=== PATIENT | female | born 1980 | race Caucasian/White ===

== ENCOUNTER 2023-03-05 18:45 | Outpatient (CLI) | payer MEDICAID, SELFPAY ==
[2023-03-05 19:35] LABS: Amphetamine/Metha Screen,Urine Negative ng/ml (<1000)
[2023-03-05 19:36] LABS: Cannabinoid Screen,Urine Positive ng/ml (<50)
[2023-03-05 19:37] LABS: Barbiturates Screen,Urine Negative ng/ml (<200)
[2023-03-05 19:38] LABS: Benzodiazepines Screen,Urine Negative ng/ml (<200); Cocaine Screen,Urine Negative ng/ml (<300)
[2023-03-05 19:39] LABS: Methadone Screen,Urine Negative ng/ml (<300)
[2023-03-05 19:40] LABS: Opiate Screen,Urine Negative ng/ml (<300); Phencyclidine Screen,Urine Negative ng/ml (<25)
== END 2023-03-05 23:59 ==
LOC: LAB.DROPOF 18:46
PROVIDERS: PCP Family Medicine; Visit Provider Family Medicine
DX: Z79.899 Other long term (current) drug therapy (principal)
CPT/HCPCS: 80307

== ENCOUNTER 2023-05-10 19:32 | Outpatient (CLI) | payer MEDICAID, SELFPAY ==
[2023-05-10 19:13] LABS: Basophils # 0.1 K/mm3 (0-0.2); Basophils % 1.3 % (0.1-2.0); Eosinophils # 0.1 K/mm3 (0.0-0.4); Eosinophils % 0.8 % (0.1-12.0); Hematocrit 45.8 % (37.0-47.0); Hemoglobin 14.4 g/dL (12.2-16.2); Lymphocytes # 3.3 K/mm3 (0.7-4.5); Lymphocytes % 38.5 % (10-50); Mean Corpuscular HGB Conc 31.5 g/dL (31.8-35.4); Mean Corpuscular Hemoglobin 31.5 pg (27.0-31.2); Mean Corpuscular Volume 99.7 fl (81-99); Mean Platelet Volume 9.7 fl (7.4-10.4); Monocytes # 0.6 K/mm3 (0.1-1.0); Monocytes % 6.8 % (1.7-9.3); Neutrophils # 4.4 K/mm3 (1.8-7.8); Neutrophils % 52.6 % (37.0-80.0); Platelet Count 676 K/mm3 (142-424); Red Blood Count 4.59 M/mm3 (4.20-5.40); Red Cell Distribution Width 15.8 % (11.5-17.5); White Blood Count 8.4 K/mm3 (4.8-10.8)
[2023-05-10 19:33] LABS: Chloride 105 mmol/L (98-107); Sodium 138 mmol/L (136-145)
[2023-05-10 19:36] LABS: Alanine Aminotransferase 16 U/L (12-78); Albumin Level 3.8 g/dl (3.5-5.0); Albumin/Globulin Ratio 1.3 (1.1-1.8); Alkaline Phosphatase 88 U/L (38-126); Aspartate Amino Transferase 22 U/L (14-36); Blood Urea Nitrogen 7 mg/dl (7-17); Carbon Dioxide 29 mmol/L (22.0-30.0); Cholesterol 174 mg/dl (140-200); Estimated Glomerular Filt Rate 135 ml/min (>60); GFR (African American) 164 ML/MIN (>60); Total Protein,Serum 6.8 g/dl (6.3-8.2); Triglycerides 133 mg/dl (30-150); VLDL Cholesterol 27 mg/dL (0-40)
[2023-05-10 19:37] LABS: Calcium 9.2 mg/dl (8.4-10.2); Chol/HDL Ratio 5.3 (1-3.5); Glucose 96 mg/dl (74-100); HDL Cholesterol 33 mg/dl (40-60)
[2023-05-10 19:39] LABS: Bilirubin,Total 0.1 mg/dl (0.2-1.3)
[2023-05-10 19:48] LABS: Direct LDL Cholesterol 106.84 mg/dL (100-129)
[2023-05-10 19:55] LABS: Free T4 (Free Thyroxine) 1.12 ng/dl (0.78-2.19)
[2023-05-10 19:58] LABS: Hemoglobin A1C 6.1 % (4.0-6.0)
== END 2023-05-10 23:59 ==
LOC: LAB.DROPOF 19:32
PROVIDERS: Nurse Practitioner Acute Care; PCP Nurse Practitioner Family; Visit Provider Nurse Practitioner Family
DX: R73.09 Other abnormal glucose (principal); F32.A Depression, unspecified; F41.9 Anxiety disorder, unspecified; R30.0 Dysuria; Z79.899 Other long term (current) drug therapy
CPT/HCPCS: 80053; 80061; 83036; 84439; 84443; 85025; 87086

== ENCOUNTER 2023-11-16 11:05 | Outpatient (CLI) | payer MEDICAID, SELFPAY ==
[2023-11-16 18:37] LABS: Basophils # 0.1 K/mm3 (0-0.2); Basophils % 0.8 % (0.1-2.0); Eosinophils # 0.2 K/mm3 (0.0-0.4); Eosinophils % 1.6 % (0.1-12.0); Hematocrit 42.6 % (37.0-47.0); Lymphocytes # 4.7 K/mm3 (0.7-4.5); Lymphocytes % 46.9 % (10-50); Mean Corpuscular HGB Conc 30.4 g/dL (31.8-35.4); Mean Corpuscular Hemoglobin 30.4 pg (27.0-31.2); Mean Corpuscular Volume 99.9 fl (81-99); Mean Platelet Volume 9.1 fl (7.4-10.4); Monocytes # 0.7 K/mm3 (0.1-1.0); Monocytes % 6.9 % (1.7-9.3); Neutrophils # 4.4 K/mm3 (1.8-7.8); Neutrophils % 43.8 % (37.0-80.0); Platelet Count 495 K/mm3 (142-424); Red Blood Count 4.26 M/mm3 (4.20-5.40); Red Cell Distribution Width 16.6 % (11.5-17.5)
[2023-11-16 19:00] LABS: Alanine Aminotransferase 19 U/L (12-78); Albumin Level 3.7 g/dl (3.5-5.0); Albumin/Globulin Ratio 1.3 (1.1-1.8); Alkaline Phosphatase 71 U/L (38-126); Amylase 51 U/L (30-110); Anion Gap 5.1 mEq/L (5-15); Aspartate Amino Transferase 26 U/L (14-36); Bilirubin,Total 0.3 mg/dl (0.2-1.3); Blood Urea Nitrogen 12 mg/dl (7-17); Calcium 8.5 mg/dl (8.4-10.2); Carbon Dioxide 28 mmol/L (22.0-30.0); Chloride 105 mmol/L (98-107); Estimated Glomerular Filt Rate 135 ml/min (>60); GFR (African American) 164 ML/MIN (>60); Globulin 2.9 g/dL (1.3-3.2); Glucose 104 mg/dl (74-100); Lipase 34 U/L (23-300); Potassium 4.1 mmoL/L (3.5-5.1); Sodium 134 mmol/L (136-145); Total Protein,Serum 6.6 g/dl (6.3-8.2)
[2023-11-16 19:32] LABS: Thyroid Stimulating Hormone 3.07 uIU/mL (0.465-4.68)
== END 2023-11-16 23:59 | disposition home or self-care (01) ==
LOC: LAB.DROPOF 11-17 11:05
PROVIDERS: PCP Nurse Practitioner; Visit Provider Nurse Practitioner
DX: R10.11 Right upper quadrant pain (principal)
CPT/HCPCS: 80050; 80053; 82150; 83690; 84443; 85025

== ENCOUNTER 2024-09-12 13:11 | Outpatient (CLI) | payer MEDICAID, SELFPAY ==
--- OUTSIDE RECORDS SUMMARY | 2024-09-12 13:14 | XMS_ITS | Encounter Summary ---
Author Organization [facility] Address [address] [place], [place] [address] Care Team Providers Care Design Supervisor Name Role Phone Provider, Generic External Data Unavailable Unavailable Shivani Stewart MD Unavailable Yvon Marx MD Unavailable [phone] Shivani Stewart MD Primary Care Provider [phone] Shalom Harrison MD Unavailable Denae Garcia RN Unavailable [phone] Ade Sparrow NP Unavailable [phone] Reason for Visit * Reason Comments Medications Refill Encounter Details Date Type Department Care Team (Late st Contact Info) Description 12/29/2021 Refill [facility] Physicians - Primary Care, [place] [address] [facility] [place] [address] Shivani Stewart MD [address] [facility] [place] [address] Medications Refill Social History Tobacco Use Types Packs/Day Years Used Date Smoking Tobacco: Every Day Cigarettes 0.5 35.6 Started: 02/22/1989 Smokeless Tobacco: Never Alcohol Use Standard Drinks/Week Comments Yes 0 (1 standard drink = 0.6 oz pur e alcohol) socially PHQ-2 Answer Date Recorded PHQ-9 Auto Total 0 01/12/2020 Comments No Sex and Gender Information Value Date Recorded Sex Assigned at Female 04/03/2022 12:44 PM EST Legal Sex Female 1:57 PM EDT Gender Identity Female 04/03/2022 12:44 PM EST Sexual Orientation Straight 04/03/2022 12 :44 PM EST documented as of this encounter Plan of Treatment Not on file documented as of this encounter Visit Diagnoses Diagnosis Hypertension associated with type 2 diabetes mellitus ([facility]) Type 2 diabetes mellitus with other specified complication, without long-term current use of insulin DM type 2 with diabetic mixed hyperlipidemia ([facility]) Type II or unspecified type diabetes mellitus with other specified manifestations, not stated as uncontrolled documented in this encounter Additional Health Concerns Assessment Noted Time PHQ-9 Depression Total Score: 1 01/12/20 10:57 AM EST documented as of this encounter Care Teams Design Supervisor Relationship Specialty Start Date End Date Shivani Stewart MD [address] [place] [address] PCP - General Family Medicine 10/01/21 02/08/23 Provider, Generic External Data 07/11/20 Shivani Stewart MD [address] [place] [address] Family Medicine 02/10/21 Yvon Marx MD [address] [place] [address] Family Medicine 03/06/21 Shalom Harrison MD [address] [place] [address] Hematology and Oncology 03/30/22 Denae Garcia, RN [address] [place] [address] Oncology Nurse Navigator 03/31/22 Ade Sparrow [facility] [employer] [facility] [address] [place] [address] Nurse Practitioner Family Medicine 04/19/22 documented as of this encounter
--- OUTSIDE RECORDS SUMMARY | 2024-09-12 13:14 | XMS_ITS | Clinical Summary ---
Author Organization [facility] Address [address] [place] [address] Phone Care Team Providers Care All Source Intelligence Technician Name Role Phone Kateryna Katz MD Unavailable Unavailable Theresa Main APRN Primary Care Provider [phone] Allergies Active Allergy Reactions Criticality Noted Date Comments Clindamycin Nausea And Vomiting 03/30/2018 Morphine Hives,Shortness Of Breath Medium 05/30/2014 Sertraline Hives,Swelling Medium 05/30/2014 Medications * This document contains information received from the source organization and may not represent a complete record from that organization. omeprazole (PRILOSEC) 20 mg Oral Capsule, Delayed Release(E.C.)In dications:Gastr oesophageal reflux disease, esophagitis presence not specified Take 1 Cap by mouth daily. 30 Cap 5 05/19/19 19 Active topiramate (TOPAMAX) 25 mg Oral Tablet Take 25 mg by mouth daily. 03/08/19 19 Active metoprolol succinate (TOPROL-XL) 25 mg Oral Tablet Sustained Release 24 hr Take 1 Tab by mouth daily. 30 Tab 6 06/09/19 19 Active aspirin 325 mg Oral Tablet Take 325 mg by mouth daily. Active QUEtiapine (SEROQUEL) 100 mg Oral Tablet TAKE ONE OR 2 BY MOUTH AT BEDTIME 10/02/19 20 Active risperiDONE (RISPERDAL) 0.5 mg Oral Tablet TAKE ONE BY MOUTH TWICE DAILY OR TAKE 2 AT BEDTIME 10/02/19 20 Active gabapentin (NEURONTIN) 800 mg Oral Tablet Take 800 mg by mouth 4 times daily. Active famotidine (PEPCID) 40 mg Oral Tablet Take 40 mg by mouth daily. Active venlafaxine (EFFEXOR-XR) 75 mg Oral Capsule, Sust. Release 24 hr Take 1 mg by mouth daily. Active mometasone-form oterol (DULERA HFA) 200-5 mcg/actuation Inhl HFA Aerosol Inhaler Inhale 1 Puff into the lungs 2 times daily. Active nalOXone (NARCAN) 4 mg/actuation Nasl [place], Non-AerosolIndi cations:At risk for substance overdose 0.1 mL by INTRANASAL route as needed for Opioid Reversal. 1 Package 11/21/19 Active ferrous sulfate 325 mg (65 mg iron) Oral TabletIndicatio ns:Normocytic anemia,Thromboc ytosis TAKE ONE TABLET BY MOUTH TWO TIMES DAILY 60 Tab 3 05/04/19 21 Active Additional Information Patient not taking.Reason: Therapy Completed, Reported on 09/10/2021 buprenorphine-n aloxone (SUBOXONE) 8-2 mg SL Tablet, Sublingual Place 2 Tabs under the tongue daily. 14 Tab 05/11/19 Active Additional Information Patient taking differently: 3 TabletSublingual DAILY, Reason: Advised by Physician, Reported on 02/20/2022 dicyclomine (BENTYL) 20 mg Oral Tablet Take 1 Tablet by mouth 4 times daily as needed for Other (abdominal cramping) for up to 20 doses. 20 Tablet 08/19/19 22 Active Additional Information Patient not taking.Reason: Therapy Completed, Reported on 02/20/2022 promethazine (PHENERGAN) 25 mg Oral Tablet Take 25 mg by mouth every 8 hours as needed. for nausea 08/27/19 Active pravastatin (PRAVACHOL) 10 mg Oral Tablet Take 10 mg by mouth every evening. 08/23/19 22 Active ondansetron (ZOFRAN) 8 mg Oral Tablet Take by mouth every 8 hours as needed. 08/27/19 22 Active metFORMIN (GLUCOPHAGE XR) 500 mg Oral Tablet Sustained Release 24 hr 08/13/19 22 Active meloxicam (MOBIC) 15 mg Oral Tablet Take 15 mg by mouth daily. 08/30/19 22 Active INVOKANA 300 mg Oral Tablet TAKE 1 TABLET BY MOUTH DAILY. TAKE BEFORE THE FIRST MEAL OF THE DAY. 08/21/19 Active albuterol (PROVENTIL HFA;VENTOLIN HFA) 90 mcg/actuation Inhl HFA Aerosol Inhaler Inhale 2 Puffs into the lungs every 6 hours. 12/10/19 21 Active acetaminophen (TYLENOL) 500 mg Oral Tablet Take by mouth every 4 hours as needed for Pain. Active FLUoxetine (PROZAC) 20 mg Oral Tablet Take 20 mg by mouth daily. Active Active Problems Patient Care Coordination No te Formatting of this note migh t be different from the original. Tuan: as expected 06/21/17 CSTA signed 06/21/17 UDS inconsistent 06/21/17 Inconsistent UDS, no controlled substances from [place] office. Problem Noted Date Diagnosed Date Opioid dependence on agonist therapy 04/30/2020 Methamphetamine use disorder, severe 04/23/2020 Cannabis use disorder, severe, dependence 2020 Pelvic pain in female 03/19/2020 Uncontrolled hypertension 03/19/2020 Menorrhagia with irregular cycle 03/05/2020 Irregular menstrual bleeding 11/08/2019 Assessment & Plan (11/08/2019 2:17 PM EDT): Limited exam due to body habitus Will obtain TVUS and consider EMB at follow up visit Limited medical therapy, patient declines progesterone therapy Review of TXA recommends limiting use in patient's with history of prior Thrombosis. Discussed Endometrial ablation, however counseled that this may not resolve her abdominal/pelvic pain Desires definitive therapy with hysterectomy Dysmenorrhea 11/08/2019 Cervical cancer screening 11/08/2019 Dysarthria 08/22/2018 Facial droop 08/22/2018 Essential hypertension 06/08/2018 Overview (07/21/2018): BP Readings from Last 3 Encounters: 07/21/18 148/90 06/22/18 158/76 06/08/18 (!) 168/104 Improved back on metoprolol. Not at goal. Denies chest pain and SOB, swelling, dizziness or orthostatics. Head aches are better as well. continue metoprolol Start HCTZ 25 mg daily Abnormal thyroid blood test 05/18/2018 Overview (05/18/2018): Will recheck GERD (gastroesophageal reflux disease) 9 Overview (05/18/2018): well controled on omeprazole Opioid use disorder, severe, dependence 05/19/19 19 Overview (06/22/2018): 06/22/18 Smoked marijuana prior to 06/08/18. Will need to have clean drug screens by 08/08/18. Has been doing counseling and 12 step. Manny and tuan frazier. 06/13/2018 Spoke with Jostin Marcus pts next appointment is 06/14/2018 @ 10:30, pt has been compliant with all sessions. 05/18/18 Substance use Hx: (type, quant, route): Marijuana, smoke, Frequency: 1/2 quarter every 2 days How lon years Longest sobriety: months at a time Progression: Stays same- I smoke daily Last exposure: 05/16/18 (type, quant, route): Tobacco, smoke, 1 PPD Frequency: daily How lon years Longest sobriety: never Progression: same Last exposure: today Denies alcohol use. (type, quant, route): max dose was 150 mg oxycodone daily snorting. Frequency: daily How long: started at age 22 recreationally. Addicted after 3 months. Longest sobriety: 2 years Last exposure: 04/02/2018 (type, quant, route): Heroin, max daily use 1 gram daily IV. Currently using 0.5 grams daily Frequency: daily How long: started at age 30 Longest sobriety: 4 years part of time was in senior living and then rehab Last exposure: 05/16/18 (type, quant, route): Suboxone Prescribed in 2018 for 2 weeks but stopped due to cost. (type, quant, route): Methamphetamine, 1 gram Frequency: daily How long: started age 24 Longest sobriety: 4 years Last exposure: last exposure 05/16/18 (type, quant, route): Methadone, 80 mg, drink Prescribed in 2018 for 3 months. Has used off the street as well intermittently Frequency: daily How long: not using Longest sobriety: Only used a short period of time Progression: slowed Last exposure: 2018 Denies K2, spice, Kratum use. Denies sedative use. Has used intermittently in remote past. History of substance use related seizures: no Substances: (Tolerance: A state of adaptation in which exposure to a drug induces changes that result in diminution of one or more of the drug's effects over time.) Evidence of tolerance to any substance: yes Substances: Percocet and Heroin (Dependence: A state of adaptation that is manifested by a drug class specific withdrawal syndrome that can be produced by abrupt cessation, rapid dose reduction, decreasing blood level of the drug, and / or administration of an antagonist.) Evidence of dependence to any substance: yes Substances: Percocet and Heroin (Substance abuse: A maladaptive pattern of substance use leading to clinically significant impairment or distress, as manifested by one or more of the following, occuring with in a 12-month period: 1. Recurrent substance use resulting in a failure to fulfill major role obligations at work, school, or home. 2. Recurrent substance use in situations in which it is physically hazardous. 3. Recurrent substance-related legal problems. 4. Continued substance use despite having persistent or recurrent social or interpersonal problems caused or exacerbated by the effects of the substance. Evidence of substance abuse: yes Substances: Percocet and Heroin Evidence of opioid use disorder: yes (if yes insert DSM5 check list) DSMV Opioid Use Disorder diagnostic criteria Opioid Use Disorder requires at least 2 criteria be met within a 12 month period 1. Opioids are often taken in larger amounts or over a longer period of time than intended. yes 2. There is a persistent desire or unsuccessful efforts to cut down or control opioid use. yes 3. A great deal of time is spent in activities necessary to obtain the opioid, use the opiod, or recover from its effects. yes 4. Craving, or a strong desire to use opioids. yes 5. Recurrent opioid use resulting in failure to fulfill major role obligations at work, school, or home. yes 6. Continued opioid use despite having persistent or recurrent social or interpersonal problems caused or exacerbated by the effects of opioids. yes 7. Important social, occupational or recreational activities are given up or reduced because of opioid use. yes 8. Recurrent opioid use in situations in which it is physically hazardous. yes 9. Continued use despite knowledge of having a persistent or recurrent physical or psychological problem that is likely to have been caused or exacerbated by opioids. yes 10. * Tolerance as defined by either of the following: A. A need for markedly increased amounts of opiods to achieve intoxication or desired effect. yes B. Markedly diminished effect with continued use of the same amount of an opioid. yes 11. * Withdrawal, as manifested by either of the following: A. The characteristic opioid withdrawal syndrome. yes B. The same (or a closely related) substance are taken to relieve or avoid withdrawal symptoms. yes * This criterion is not considered to be met for those individuals taking opioids solely under appropriate medical supervision. Severity: Mild: 2-3 symptoms, Moderate: 4-5 symptoms, Severe: 6 or more symptoms History of opioid withdrawal: yes (If yes insert DSM5 criteria) History of overdose: no Treatment history: (inpatient / outpatient, MAT, 12 steps, location, dates) [facility] [place] 2010- 12 month program in [facility] 2001- 12 month program in [facility] Counseling with Jostin Marcus currently Is doing 12 steps. Consequences of drug use: I have 2 felonies due to my drug abuse. Lynda lost all my family and I'm just not who I used to be before I became this monster. Health issues. How is pt feeling? In withdraw Currently intoxicated? no Insight, motivation, readiness to change? yes Stage of change (precontemplative, contemplative, preparative, action, maintenance, relapse): change Past psychiatric history: (Dx, duration, course, treatment): Not sure of the dates, but I was in the mental hospital 3 times last year. Primarily to help with withdraw. Hx of depression and anxiety. Has been on SSRI's. Previous psych hospital admissions: yes Physical abuse hx: no Mood sympotms Depression: yes Anxiety: yes Insomnia: yes Rapid thoughts: yes Difficulty with focus: yes Forgetfulness: yes Crying spells: yes Anger control issues: yes Mood swings: yes Palpitatons: yes SOB: no Nausea: yes Appetite change: yes Panic attacks: yes HSI: no AVH: no Thoughts of : no Despair: no Anhedonia: no TP: linear, TC: logical, mood: , affect: Congruent Sexual history: Sexually active: yes Length of time with current partner: 5 years Number of partners in lifetime: many Practices safe sex: did not always use condoms High risk sexual behavior? no STD hx: Trichomonas s/p tx. Any current STD symptoms: no Sexual abuse hx: no Social recovery environment: Living situation: I live with my fiance, who is super supportive Family / social support: My fiance is all I have Relationships: (Single / / / ): single Children: 19- girl 14-girl 13- boy Youngest children are in foster care, has relationship with older child. Problems at school or work? unemployed Relational problems with spouse or children? yes Involvement in violence? no Legal charges for public intox, altercations, possession or DUI? Yes 2008 Manufacturing Meth 1999 Poss of a stolen check Longest time in senior living has been 2 years No current legal issues. Financial problems? yes Partner with substance use disorder? no School hx: Not in school Did not graduate high school. Did not get GED. Work hx: I dont work Given handouts on Frequently asked questions, Welcome to [facility], Basic suboxone information, Warning about returning to opioid use Consents discussed and signed. Discussed suboxone is for safety, but recovery occurs in the process that involves counselling and sober communities. Has a month do begin establishing these or we may need to discuss a wean protocol. Referral sources provided. Continue activity of recover, counseling and 12 steps. Viral hepatitis A without hepatic coma 9 Overview (05/18/2018): Liver enzymes now returning to normal. No longer jaundiced Depression with anxiety 11/01/2017 Overview (07/21/2018): Denies HSI, AVH, anhedonia, despair Improved on celexa Morbid obesity with BMI of 45.0-49.9, adult 06/23 Overview (07/21/2018): Wt Readings from Last 3 Encounters: 07/21/18 281 lb 9.6 oz (127.7 kg) 06/22/18 295 lb 6.4 oz (134 kg) 06/08/18 292 lb (132.5 kg) diet and exercise. Tobacco abuse 07/15/2017 Overview (05/18/2018): stop Chronic low back pain 01/30/2015 Overview (06/08/2018): Will not rx gabapentin due to continued use of marijuana Recommend tylenol and aleve ROM exercises. Resolved Problems Problem Noted Date Diagnosed Date Resolved Date Recurrent biliary colic 04/15/201804/23 Overview (04/15/2018): Added automatically from request for surgery [id number] Calculus of gallbladder with out cholecystitis without obstruction 03/30/2018 05/18/2018 Surgical History Surgery Date Site/Laterality Comments SPLENECTOMY lymphoma OVARY REMOVAL Right SALPINGO-OOPHORECTOMY Right ABDOMINAL ADHESION SURGERY TONSILLECTOMY COLONOSCOPY 08/14/15 UPPER GASTROINTESTINAL ENDOSCOPY 08/14/15 COLONOSCOPY 08/14/2015 N/A COLONOSCOPY with hot snare polypectomy, polypectomy with biopsy forceps ESOPHAGOGASTRODUODENOSCOPY with biopsies; Surgeon: Kateryna Katz MD; Location: [facility]; Service: Endoscopy UPPER GASTROINTESTINAL ENDOSCOPY 08/14/2015 N/A Surgeon: Kateryna Katz MD; Location: [facility]; Service: Endoscopy SECTION x3 SPLENECTOMY 02/23/2008 - 02/21/2009 CHOLECYSTECTOMY, LAPAROSCOPIC 04/18/2018 Abdomen/N/A Laparoscopic Cholecystectomy ; Surgeon: Ezio Dorsey MD; Location: [facility] OR; Service: General Medical History Medical History Date Comments Chronic back pain Lymphoma (HCC) 2008 Treated in [facility] HTN (hypertension) Heartburn Hepatitis Hepatitis A (02/23 019) Depression Cancer (HCC) Abnormal glandular Papanicolaou smear of cervix Allergy Anemia Anxiety Arthritis Asthma Encounter for blood transfusion GERD (gastroesophageal reflux disease) Heart murmur Stroke (HCC) Substance abuse (HCC) Diabetes mellitus (HCC) Family History Medical History Relation Name Comments Cancer Father lymphoma, prost ate, melanoma Cirrhosis Father Diabetes Father Heart Disease Father High Blood Pressure Father High Cholesterol Father Liver Disease Father Rectal Cancer Father Cirrhosis Mother Depression Mother Heart Disease Mother High Blood Pressure Mother High Cholesterol Mother Liver Disease Mother Diabetes Paternal Grandmother Colon Cancer Neg Hx Esophageal Cancer Neg Hx Liver Cancer Neg Hx Stomach Cancer Neg Hx Relation Name Status Comments Father Mother Paternal Grandmother Social History Tobacco Use Types Packs/Day Years Used Date Smoking Tobacco: Every Day Cigarettes 0.5 31.2 Started: 06/21/1993 Smokeless Tobacco: Never Tobacco Cessation:Ready to Q uit: Not Asked; Counseling Given: Not Answered Alcohol Use Standard Drinks/Week Comments No 0 (1 standard drink = 0.6 oz pur e alcohol) PHQ-2 Answer Date Recorded PHQ-2 Score 0 07/13/2018 Sexually Active Control Partners Comments Yes Male not preventing Comments No Sex and Gender Information Value Date Recorded Sex Assigned at Not on file Legal Sex Female 9:32 AM EDT Gender Identity Not on file Sexual Orientation Not on file Obstetrics History Para Term AB IAB SAB Ectopic Multiple Livin g Live Births 3 3 3 0 0 0 0 0 0 3 3 Date Outcome GA Total Labor Labor/2nd/3rd Weight Sex Type Anes PTL [place] A1 A5 Name Clin 09/26 Term 6 lb 7 oz (2.92 kg) F CSP Spinal Living 07/29 Term 7 lb 8 oz (3.402 kg) F CHIEF RADIOLOGIC TECHNOLOGIST Spinal Living 10/08 Term 6 lb 2 oz (2.778 kg) M CHIEF RADIOLOGIC TECHNOLOGIST Spinal Living Last Filed Vital Signs Vital Sign Reading Time Taken Comments Blood Pressure 120/65 01/02/2024 1:30 PM EST Pulse 49 01/02/2024 2:26 PM EST Temperature 36.7 C (98.1 F) 01/02/2024 1:57 PM EST Respiratory Rate 12 01/02/2024 2:26 PM EST Oxygen Saturation 95% 01/02/2024 2:26 PM EST Inhaled Oxygen Concentration - - Weight 122.5 kg (270 lb) 01/02/2024 11:49 AM EST Height 165.1 cm (5' 5 ) 01/02/2024 11:49 AM EST Body Mass Index 44.93 01/02/2024 11:49 AM EST Plan of Treatment Health Maintenance Due Date Last Done Comments Meningococcal Vaccine ACWY ( 1 - Risk 2-dose series) 1982 Meningococcal B Vaccine (1 o f 4 - Increased Risk) 1990 Hepatitis B Vaccine (1 of 3 - 19+ 3-dose series) 12/15/1999 Pneumococcal Vaccine 0-49 (1 of 2 - PCV) 12/15/1999 Annual Wellness Exam 05/22/2016 05/23/2015 (Postpone d) Breast Cancer Screening 2020 Pap Smear 11/07/2022 11/08/2019, 09/03/2014 COVID-19 Vaccine ( - season) 2023 Influenza Vaccine (#1) 2024 6 (Declined), 11/28/2014 (Declined), 11/22/2014 (Declined) Cervical Cancer Screening 11/07/2024 HPV/Pap Cotest 11/07/2024 11/08/2019 DTaP/TDaP/Td (2 - Td or Tdap) 03/03/2027 03/03/2017 Goals Goal Patient Goal Type Associated Problems Recent Progress Patient-Stated? Author Blood Pressure < 140/90 Blood Pressure 120/65(2023 1:30 PM EST) Coty Crump APRN Maintain a healthy diet, exercise regularly and maintain an ideal body weight General No Wendi Andrea MA Stay Tobacco Free Lifestyle Wendi Crump MA Procedures Procedure Name Priority Date/Time Associated Diagnosis Comments ASSESSMENT SERVICES MANAGER CYTOLOGY REQUEST (PAP ONLY) Routine 11/08/2019 11:37 AM EDT Cervical cancer screening Irregular menstrual bleeding from Last 3 Months or Most Recently Relevant to Health Maintenance Results * (ABNORMAL) ASSESSMENT SERVICES MANAGER CYTOLOGY REQUEST (PAP ONLY) (11/08/2019 11:37 AM EDT) CASE REPORT Gynecologic Cytology Report Case: [id number] Authorizing Provider: Lala Kline MD Collected: 11/08/2019 1137 Ordering Location: [facility] Edg Received: 11/08/2019 1137 First Screen: Pascale Gars[place], CT Pathologist: Frandy Roldan MD Specimen: LIQUID-BASED PAP - CERVICAL/ENDOCERV ICAL, Cervix, Endocervical 11/10/2019 10:31 AM EDT [facility] PAP FINAL DIAGNOSIS Atypical squamous cells of undetermined significance(A) [facility] MICROSCOPIC DESCRIPTION Microscopic examination is performed and the findings corroborate the diagnosis 11/10/2019 10:31 AM EDT [facility] P[facility] ADEQUACY Satisfactory for evaluation 11/10/2019 10:31 AM EDT [facility] ENDOCERVICAL T-ZONE Transformation zone present 11/10/2019 10:31 AM EDT [facility]EDDED IMAGES [facility] P[facility] DISCLAIMER The Pap Smear is a screening test that aids in the detection of cervical cancer and cancer precursors. Both false positive and false negative results can occur. The test should be used at regular intervals, and positive results should be confirmed before definitive therapy. Processed using the ThinPrep Aircraft Stress Analyst Automated cytology screening device (Sonavation). 11/10/2019 10:31 AM EDT [facility] Thin Prep ENDOCERVICAL STRUCTURE / Unknown 11/08/2019 11:37 AM EDT 11/08/2019 11:37 AM EDT us Lala Kline MD CYTOLOGY ORDERABLES Final Resul t [facility] [address] [place] [address] from Last 3 Months or Most Recently Relevant to Health Maintenance Insurance [employer] [address] [place] [address] [address] [employer] [address] [employer] [place] [id number] [place] [employer] [place] [id number] [place] Advance Directives For more information, please contact: [phone] * Full Code (Latest Code Status on File) Date Activated Date Inactivated Comments 08/23/2018 10:51 AM 08/23/2018 3:23 PM * Full Code Date Activated Date Inactivated Comments 03/30/2018 11:58 PM 03/31/2018 8:16 PM Care Teams All Source Intelligence Technician Relationship Specialty Start Date End Date Theresa Main APRN [facility] [address] [place] [address] PCP - General Nurse Practitioner 03/04/18 Kateryna Katz MD Physician Internal Medicine-Gastroenterology 08/12/15
--- OUTSIDE RECORDS SUMMARY | 2024-09-12 13:14 | XMS_ITS | Encounter Summary ---
Author Organization [facility] Address [address] [place], [place] [address] Care Team Providers Care Rn Corrections Name Role Phone Provider, Generic External Data Unavailable Unavailable Shivani Stewart MD Unavailable Yvon Marx MD Unavailable [phone] Shivani Stewart MD Primary Care Provider [phone] Shalom Harrison MD Unavailable Denae Garcia RN Unavailable [phone] Ade Sparrow NP Unavailable [phone] Reason for Visit * Reason Comments Medications Refill Encounter Details Date Type Department Care Team (Late st Contact Info) Description 06/30/2022 Refill [facility] Physicians - Primary Care, [place] [address] [facility] [place] [address] Shivani Stewart MD [address] [place] [place] [address] Medications Refill Social History Tobacco [...] Orientation Straight 04/03/2022 12 :44 PM EST COVID-19 Exposure Response Date Recorded In the last 10 days, have yo u been in contact with someone who was confirmed or suspected to have Coronavirus/COVID-19? No / Unsure 06/24/2022 10:08 AM EDT documented as of this encounter Miscellaneous Notes * Telephone Encounter - Lucero Odell MA - 06/30/2022 11:41 AM EDT Last UDS:05/06/2021 Last CSA:[id number] Last OV: 04/06/2022 video with LT, 11/25/2021 ov with Pending OV:08/26/2022 Unless otherwise stated 3 month office visit is required per [employer] Law documented in this encounter Plan of Treatment Not on file documented as of this encounter Visit Diagnoses Diagnosis Chronic midline low back pain without sciatica Controlled substance agreement signed Encounter for long-term (current) use of other medications documented in this encounter Additional Health Concerns Assessment Noted Time PHQ-9 Depression Total Score: 1 01/12/20 10:57 AM EST documented as of this encounter Care Teams Rn Corrections Relationship Specialty Start Date End Date Shivani Stewart MD [address] [employer] [address] [place], [place] [id number] PCP - General Family Medicine 10/01/21 02/08/23 Provider, Generic External Data 07/11/20 Shivani Stewart MD [address] [employer] [address] [place], [place] [id number] Family Medicine 02/10/21 Yvon Marx MD [address] [place] [address] Family Medicine 03/06/21 Shalom Harrison MD [address] [place] [address] Hematology and Oncology 03/30/22 Denae Garcia, CHAS [address] [place] [address] Oncology Nurse Navigator 03/31/22 Ade Sparrow NP [address] [place] [address] Nurse Practitioner Family Medicine 04/19/22 documented as of this encounter
--- OUTSIDE RECORDS SUMMARY | 2024-09-12 13:14 | XMS_ITS | Encounter Summary ---
Author Organization [facility] Address [address] [place], [place] [address] Care Team Providers Care Starch Factory Laborer Name Role Phone Theresa Main NP Primary Care Provider [phone] Provider, Generic External Data Unavailable Unavailable Shivani Stewart MD Unavailable Yvon Marx MD Unavailable [phone] Shivani Stewart MD Primary Care Provider [phone] Shalom Harrison MD Unavailable Denae Garcia RN Unavailable [phone] Ade Sparrow NP Unavailable [phone] Reason for Visit * Reason Comments Medications Refill Encounter Details Date Type Department Care Team (Late st Contact Info) Description 04/03/2018 Refill [facility] Physicians - Primary Care, [place] [address] [place] [address] [place] [address] Theresa Main NP [address] [place] [id number] Medications Refill Social History Tobacco Use Types Packs/Day Years Used Date Smoking Tobacco: Every Day Cigarettes 0.5 35.6 Started: 02/22/1989 Smokeless Tobacco: Never Alcohol Use Standard Drinks/Week Comments Yes 0 (1 standard drink = 0.6 oz pur e alcohol) socially Comments No Sex and Gender Information Value Date Recorded Sex Assigned at Female 04/03/2022 12:44 PM EST Legal Sex Female 1:57 PM EDT Gender Identity Female 04/03/2022 12:44 PM EST Sexual Orientation Straight 04/03/2022 12 :44 PM EST documented as of this encounter Plan of Treatment Not on file documented as of this encounter Visit Diagnoses Diagnosis Routine general medical examination at a health care facility Encounter to establish care Other reasons for seeking consultation Cancer screening Screening for unspecified malignant neoplasm Morbidly obese ([facility]) Morbid obesity Tobacco abuse Tobacco use disorder Essential hypertension Anxiety Anxiety state, unspecified Acute vaginitis Vaginitis and vulvovaginitis, unspecified Chronic midline low back pain without sciatica documented in this encounter Additional Health Concerns Infection Onset Date Last Indicated Resolved Time Hepatitis A Comment:03/21/2018 + Hep A 03/22/2018 03/22/2018 06/16/2018 2:2 7 PM EDT Assessment Noted Time PHQ-9 Depression Total Score: 1 08/27/19 18 12:14 PM EDT documented as of this encounter Care Teams Starch Factory Laborer Relationship Specialty Start Date End Date Theresa Main NP PCP - General Nurse Practitioner 06/30/17 09/30/21 Shivani Stewart MD [address] [employer] [facility] [place] [address] PCP - General Family Medicine 10/01/21 02/08/23 Provider, Generic External Data 07/11/20 Shivani Stewart MD [address] [employer] [facility] [place] [address] Family Medicine 02/10/21 Yvon Marx MD [address] [place] [address] Family Medicine 03/06/21 Shalom Harrison MD [address] [place] [address] Hematology and Oncology 03/30/22 Denae Garcia, RN [address] [place] [address] Oncology Nurse Navigator 03/31/22 Ade Sparrow NP [address] [place] [address] Nurse Practitioner Family Medicine 04/19/22 documented as of this encounter
--- OUTSIDE RECORDS SUMMARY | 2024-09-12 13:14 | XMS_ITS | Clinical Summary ---
Author Organization [employer] [facility] Address [address] [place] [address] Phone Care Team Providers Care Generation Engineer Name Role Phone Unavailable Unavailable Conditions or Problems Problem Name Problem Code Onset Date Status Entry Date Provider Comment Standard Description Annotate DENTAL CARIES EXTENDING INTO PULP 0342327 (SNOMED CT) Inactive Ramesh Wynneelin DMD Complex dental caries Medications Medication Instructions Start Date Stop Date Generic Name NDC Provider IBUPROFEN 800 MG TABS TAKE 1 TABLET EVERY 6 HOURS NEEDED FOR PAIN IBUPROFEN [id number] Ramesh Tomelin DMD CLINDAMYCIN HCL 150 MG CAPS TAKE 2 CAPSULES EVERY 6 HOURS CLINDAMYCIN HCL [id number] Ramesh Tomelin DMD Medications Administered No information available. Allergies, Adverse Reactions, Alerts Observed no known allergies at Results No information available. Plan of Care No information available. Procedures No information available. Vital Signs No information available. Immunizations No information available. Advance Directives No information available.
--- OUTSIDE RECORDS SUMMARY | 2024-09-12 13:14 | XMS_ITS | Clinical Summary ---
Author Organization [facility] Address [address] [place], [place] [address] Care Team Providers Care Car Blocker Name Role Phone Provider, Generic External Data Unavailable Unavailable Shivani Stewart MD Unavailable Yvon Marx MD Unavailable Shalom Harrison MD Unavailable Denae Garcia RN Unavailable Ade Sparrow NP Unavailable [phone] Allergies Active Allergy Reactions Criticality Noted Date Comments Clindamycin Nausea And Vomiting 03/21/2018 Morphine Hives,Shortness Of Breath Medium 07/15/2017 Sertraline Swelling Medium 07/15/2017 Medications budesonide-formote rol (SYMBICORT) 160-4.5 mcg/actuation HFA Aerosol Inhaler Take 2 Puffs by inhalation every 12 hours. 1 Inhaler 0 Active naloxone (NARCAN) 4 mg/actuation [place], Non-Aerosol [place] 4 mg into nose. 0 Active Buprenorphine-Nalo xone (Suboxone) 8-[address] 2 Tablets under tongue. 1 Active promethazine (PHENERGAN) 25 mg tablet Take 25 mg by mouth every 8 hours as needed. 2 Active blood sugar diagnostic (TRUE METRIX GLUCOSE TEST STRIP) by Does not apply route. Active True Metrix Glucose Meter Misc Use 1 Each as instructed 4 times daily (before meals and at bedtime). Use to test blood sugar. Diagnosis for use: Type 2 Diabetes controlled E.11.9 1 Each 2 Active True Metrix Glucose Test Strip Strip Use 1 Strip as instructed 4 times daily (before meals and at bedtime). Use to test blood sugar. Diagnosis for use: Type 2 Diabetes controlled E.11.9 100 Strip 6 2 Active Lancing Device with Lancets Kit Use 1 Each as instructed 4 times daily (before meals and at bedtime). Use to test blood sugar. Diagnosis for use: Type 2 Diabetes controlled E.11.9 100 Each 1 2 Active Lancets Misc Use 1 Each as instructed 4 times daily (before meals and at bedtime). Use to test blood sugar. Diagnosis for use: Type 2 Diabetes controlled E.11.9 100 Each 1 2 Active Alcohol Swabs Pads, Medicated Use 1 Each as instructed 4 times daily (before meals and at bedtime). Use to test blood sugar. Diagnosis for use: Type 2 Diabetes controlled E.11.9 100 Each 6 2 Active dicyclomine (BENTYL) 20 mg tablet 2 Active ondansetron (ZOFRAN) 8 mg tablet Take by mouth every 8 hours as needed. 2 Active famotidine (PEPCID) 40 mg tablet Take 1 tablet by mouth every evening. 90 Tablet 3 2 Active nicotine (NICODERM CQ) 21 mg/24 hr patch Apply 1 Patch to skin daily. 30 Patch 1 3 Active QUEtiapine (SEROQUEL) 200 mg TabletIndications: GARTH (generalized anxiety disorder),Moderate episode of recurrent major depressive disorder ([facility]) Take 1 Tablet (200 mg) by mouth nightly at bedtime. 90 Tablet 3 Active metoprolol succinate (TOPROL) 50 mg Tablet Sustained Release 24 hrIndications:Hype rtension associated with type 2 diabetes mellitus ([facility]) Take 1 Tablet by mouth once daily. 30 Tablet 3 3 Active Invokana 100 mg TabletIndications: Hypertension associated with type 2 diabetes mellitus ([facility]),Type 2 diabetes mellitus with other specified complication, without long-term current use of insulin,Type 2 diabetes mellitus with microalbuminuria, without long-term current use of insulin ([facility]),DM type 2 with diabetic mixed hyperlipidemia ([facility]) Take 1 Tablet by mouth once daily. Take before the first meal of the day 30 Tablet 3 3 Active omeprazole (PRILOSEC) 40 mg Capsule, Delayed Release(E.C.)Indic ations:Chronic midline low back pain without sciatica,Cancer screening,Morbidly obese ([facility]),Tobacco abuse,Essential hypertension,Anxie ty Take 1 capsule by mouth once daily 90 Capsule 3 3 Active Dulera 200-5 mcg/actuation HFA Aerosol Inhaler Inhale 2 Puffs into the lungs twice daily. 13 g 5 3 Active losartan (COZAAR) 50 mg TabletIndications: Hypertension associated with type 2 diabetes mellitus ([facility]),Type 2 diabetes mellitus with other specified complication, without long-term current use of insulin,DM type 2 with diabetic mixed hyperlipidemia ([facility]),Type 2 diabetes mellitus with microalbuminuria, without long-term current use of insulin ([facility]) Take 1.5 Tablets by mouth once daily. 45 Tablet 3 3 Active gabapentin (NEURONTIN) 800 mg tabletIndications: Chronic midline low back pain without sciatica,Controlle d substance agreement signed Take 1 Tablet (800 mg) by mouth 4 times daily. 120 Tablet 3 Active albuterol (VENTOLIN/PROAIR/P ROVENTIL HFA) 90 mcg/actuation HFA Aerosol Inhaler Inhale 2 Puffs into the lungs every 4 hours as needed. 18 g 3 3 Active pravastatin (PRAVACHOL) 10 mg tabletIndications: Hypertension associated with type 2 diabetes mellitus ([facility]),Type 2 diabetes mellitus with complication, without long-term current use of insulin ([facility]),DM type 2 with diabetic mixed hyperlipidemia ([facility]),Type 2 diabetes mellitus with microalbuminuria, without long-term current use of insulin ([facility]) Take 1 Tablet by mouth every evening. Needs to complete previously ordered fasting labs 30 Tablet 3 Active docusate sodium (COLACE) 250 mg Capsule Take 1 Capsule (250 mg) by mouth daily. 30 Capsule 11 3 Active meloxicam (MOBIC) 15 mg tabletIndications: Chronic midline low back pain without sciatica Take 1 Tablet (15 mg) by mouth daily. 30 Tablet 1 3 Active FLUoxetine (PROzac) 40 mg capsuleIndications :GARTH (generalized anxiety disorder),Moderate episode of recurrent major depressive disorder ([facility]) TAKE 1 CAPSULE (40 MG) BY MOUTH DAILY. 30 Capsule 3 Active Active Problems Patient Care Coordination No te Formatting of this note migh t be different from the original. UDS--05/06/21 CSA--05/06/21 Problem Noted Date Diagnosed Date Iron deficiency anemia, unspecified 03/31/2022 Malabsorption of iron 03/31/2022 GARTH (generalized anxiety disorder) 10/02/2021 Moderate episode of recurren t major depressive disorder ([facility]) 10/02/2021 Obesity (BMI 35.0-39.9 without comorbidity) 04/23 Cannabis use disorder, severe, dependence ([facility]) 04/23/2020 Dysarthria 08/22/2018 Facial droop 08/22/2018 Chronic low back pain 06/21/2018 Overview (06/21/2018): Per lw Essential hypertension 06/08/2018 Overview (08/26/2018): BP Readings from Last 3 Encounters: 07/21/18 148/90 06/22/18 158/76 06/08/18 (!) 168/104 Improved back on metoprolol. Not at goal. Denies chest pain and SOB, swelling, dizziness or orthostatics. Head aches are better as well. continue metoprolol Start HCTZ 25 mg daily Opioid use disorder, severe, dependence ([facility] ) 05/18/2018 Overview (08/26/2018): 06/22/18 Smoked marijuana prior to 06/08/18. Will need to have clean drug screens by 08/08/18. Has been doing counseling and 12 step. Counts and haseeb ok. 06/13/2018 Spoke with Jostin Marcus pts next [...] 4 years part of time was in custodial and then rehab Last exposure: 05/16/18 (type, [...] 12 steps, location, dates) [facility] [place] 2011- 12 month program in [facility] [place] 2001- 12 month program in [facility] Counseling with Jostin Marcus currently Is [...] possession or DUI? Yes 2008 Manufacturing Meth 2000 Poss of a stolen check Longest time in custodial has been 2 years No current legal [...] activity of recover, counseling and 12 steps. Anxiety 11/01/2017 Morbidly obese ([facility]) 07/15/2017 Tobacco abuse 07/15/2017 Resolved Problems Problem Noted Date Diagnosed Date Resolved Date Routine general medical exam ination at a health care facility 07/15/2017 01/30/2021 Immunizations Immunization Administration Dates Next Due Tdap 03/03/2017 Family History Medical History Relation Name Comments No Known Problems Father No Known Problems Maternal Grandfather No Known Problems Maternal Grandmother No Known Problems Mother No Known Problems Paternal Grandfather No Known Problems Paternal Grandmother Relation Name Status Comments Father Maternal Grandfather Maternal Grandmother Mother Paternal Grandfather Paternal Grandmother Social History Tobacco Use Types Packs/Day Years Used Date Smoking Tobacco: Every Day Cigarettes 0.5 35.6 Started: 02/22/1989 Smokeless Tobacco: Never Tobacco Cessation:Ready to Q uit: Not Asked; Counseling Given: Not Answered Alcohol Use Standard Drinks/Week Comments Yes 0 [...] Orientation Straight 04/03/2022 12 :44 PM EST Last Filed Vital Signs Vital Sign Reading Time Taken Comments Blood Pressure 152/88 10/23/2022 11:35 AM EDT Pulse 71 10/23/2022 11:35 AM EDT Temperature 37.2 C (98.9 F) 10/23/2022 11:35 AM EDT Respiratory Rate 15 08/03/2022 10:06 AM EDT Oxygen Saturation 95% 10/23/2022 11:35 AM EDT Inhaled Oxygen Concentration - - Weight 107.5 kg (237 lb) 10/23/2022 11:35 AM EDT Height 167.6 cm (5' 6 ) 10/23/2022 11:35 AM EDT Body Mass Index 38.25 10/23/2022 11:35 AM EDT Plan of Treatment Health Maintenance Due Date Last Done Comments Tobacco Cessation Counseling 1992 Cervical Cancer Screening 11/07/2022 11/08/2019, 03/2018 COVID-19 Vaccine ( season) 2023 Lipid Monitoring 12/18/2023 12/17/2022, 05/2021, 05/06/2021, Additional history exists Depression Screening 02/23/2024 01/12/2020, 10/20/2018, 08/26/2017 Influenza Vaccination (#1) 2024 Tetanus Vaccination (Every 10 Years) 03/03/2027 03/03/2017 Diabetes Mellitus Microalbumin (Yearly) Discontinued 11/25/2021, 07/18/2020 Diabetes Mellitus Hemoglobin A1c (Yearly) Discontinued 12/17/2022, 11/25/2021, 05/06/2021, Additional history exists Lipid Screening Discontinued 12/17/2022, 05/2021, 05/06/2021, Additional history exists HPV Vaccine Aged Out No longer eligi ble based on patient's age to complete this topic Procedures Procedure Name Priority Date/Time Associated Diagnosis Comments LIPID PROFILE Routine 12/17/2022 7:39 AM EDT Hypertension associated with type 2 diabetes mellitus ([facility]) Type 2 diabetes mellitus with complication, without long-term current use of insulin ([facility]) DM type 2 with diabetic mixed hyperlipidemia ([facility]) Type 2 diabetes mellitus with microalbuminuria, without long-term current use of insulin ([facility]) HGB, A1C (GLYCOHEMOGLOBIN) Routine 12/17/2022 7:39 AM EDT Hypertension associated with type 2 diabetes mellitus ([facility]) Type 2 diabetes mellitus with complication, without long-term current use of insulin ([facility]) DM type 2 with diabetic mixed hyperlipidemia ([facility]) Type 2 diabetes mellitus with microalbuminuria, without long-term current use of insulin ([facility]) ALBUMIN, URINE CREATININE/RATIO Routine 11/25/2021 12:49 PM EDT Type 2 diabetes mellitus without complication, without long-term current use of insulin ([facility]) [id number] REQUEST Routine 11/08/2019 11:37 AM EDT from Last 3 Months or Most Recently Relevant to Health Maintenance Results * LIPID PROFILE (12/17/2022 7:39 AM EDT) [facility] Signature Cholesterol 142 125 - 199 mg/dL [facility] Comment: TOTAL CHOLESTEROL INTERPRETATION: Less than 200 mg/dL Desireable 200-239 mg/dL Borderline Greater or Equal to 240 mg/dL High LDL Calculated 78 0 - 100 mg/dL [facility] Comment: LDL CHOLESTEROL INTERPRETATION: Less than 100 mg/dL Optimal 100-129 mg/dL Near optimal/above optimal 130-159 mg/dL Borderline High 160-189 mg/dL High Greater or Equal to 190 mg/dL Very High HDL 44 40 - 180 mg/dL [facility] Comment: HDL CHOLESTEROL INTERPRETATION: Less than 40 mg/dL Low Greater than 60 mg/dL Desirable Triglycerides 98 0 - 149 mg/dL [facility] Comment: TOTAL TRIGLYCERIDE INTERPRETATION: Less than 150 mg/dL Normal 150-199 mg/dL Borderline HIgh 200-499 mg/dL High Greater or Equal to 500 mg/dL Very High NONHDL Calculated 98 0 - 129 mg/dL [facility] Comment: NON-HDL INTERPRETATION: Less than 130 mg/dL Desirable 130-159 mg/dL Above Desirable 160-189 mg/dL Borderline High 190-219 mg/dL High Greater than or equal to 220 mg/dL Very High Serum 12/17/2022 7:39 AM EDT 12/17/2022 3:23 PM EDT Narrative [facility] - 12/17/2022 6:37 PM EDT Has the patient fasted?->Yes us Shivani Stewart MD CHEMISTRY ORDERABLES Final Resul t [facility] [address] [place], [place] [address] * HGB, A1C (GLYCOHEMOGLOBIN) (12/17/2022 7:39 AM EDT) Hgb A1C 5.5 4.0 - 5.6 % [facility] Comment: Reference Ranges for Hgb A1c: Increased risk for diabetes: 5.7-6.4% Probable diabetes: >=6.5% Desired control for previously diagnosed diabetics: <7.0% Many conditions can affect the Hgb A1c value including hemolysis, recent transfusion, hemoglobin variants, thalassemias, severe chronic hepatic and renal disease and iron deficiency among others. Please note that results from this assay are invalid for patients with abnormal amounts of Hemoglobin (HbF). Results must be interpreted in the proper clinical context. This method is certified by the National Glycohemoglobin Standardization program (NGSP) and traceable to [facility]. Estimated Average Glucose 111 68 - 114 mg/dL [facility] Whole Blood 12/17/2022 7:39 AM EDT 12/17/2022 3:25 PM EDT Shivani Stewart MD CHEMISTRY ORDERABLES Final Resul t Performing Organization Address City/State/[facility] de Phone Number [facility] [address] * ALBUMIN, URINE (11/25/2021 12:49 PM EDT) Creatinine, Ur 52.2 20.0 - 310.0 mg/dL [facility] Alb, Ur 1.20 mg/dL [facility] PAPER GUILLOTINE OPERATOR AL LAB Alb Creat Ratio 23 0 - 30 mg/g creat [facility] Comment: Category Result (mg/ g Creat) Normal to mildly increased <30 Moderately increased 30-299 Severly increased >300 Due to variability in urinary albumin excretion, at least two of three test results measured within a 6-month period should show elevated levels before a patient is designated as having albuminuria. Urine 11/25/2021 12:4 9 PM EDT 11/25/2021 8:09 PM EDT Shivani Stewart MD URINE ORDERABLES Final Result [facility] [address] [place] [address], [facility] * (ABNORMAL) [id number] REQUEST (11/08/2019 11:37 AM EDT) Pathology study Gynecologic Cytology Report Case: [id number] 11/10/2019 10:[address] [facility] Comment:Pathology study Pathology study Authorizing Provider: Lala Kline MD Collected: 11/08/2019 1137 11/10/2019 10:[address] [facility] Comment:Pathology study Pathology study Ordering Location: [facility] Received: 11/08/2019 1137 11/10/2019 10:[address] [facility] Comment:Pathology study Pathology study First Screen: aPscale [place], CT 11/10/2019 10:[address] [facility] Comment:Pathology study Pathology study Pathologist: Frandy Roldan MD 11/10/2019 10:[address] [facility] Comment:Pathology study Pathology study Specimen: LIQUID-BASED PAP - CERVICAL/ENDOCERV ICAL, Cervix, Endocervical 11/10/2019 10:[address] [facility] Comment:Pathology study Microscopic observation [Identifier] in Cervix by Cyto stain Atypical squamous cells of undetermined significance(A) 11/10/2019 10:[address] [facility] Comment:Microscopic observat ion [Identifier] in Cervix by Cyto stain Microscopic observation [Identifier] in Cervix by Cyto stain (A) 11/10/2019 10:[address] [facility] Comment:Microscopic observat ion [Identifier] in Cervix by Cyto stain Comment Microscopic examination is performed and the findings corroborate the 11/10/2019 10:[address] [facility] Comment:Pathology report ke roscopic observation Narrative Other stain Comment diagnosis 11/10/2019 10:[address] [facility] Comment:Pathology report ke roscopic observation Narrative Other stain Statment of Adequacy Satisfactory for evaluation 11/10/2019 10:[address] [facility] Comment:Statement of adequac y [Interpretation] of Cervical or vaginal smear or scraping by Cyto stain Comment Transformation zone present 11/10/2019 10:[address] [facility] Digital photographic image Unspecified body region Document NULL 11/10/2019 10:[address] [facility] Comment:Photographic image Comment The Pap Smear is a screening test that aids in the detection of cervical 11/10/2019 10:[address] [facility] Comment cancer and cancer precursors. Both false positive and false negative 11/10/2019 10:[address] [facility] Comment results can occur. The test should be used at regular intervals, and 11/10/2019 10:[address] [facility] Comment positive results should be confirmed before definitive therapy. 11/10/2019 10:[address] [facility] Comment NULL 11/10/2019 10:[address] [facility] Comment Processed using the [employer] Automated cytology screening device 11/10/2019 10:[address] [facility] Comment ([email or web address]). 0 10:[address] [facility] 11/08/2019 11:3 7 AM EDT 11/09/2019 10:02 AM EDT [facility] Provider [facility]LY [facility], [facility]–1983 RESULTABLE ON LY Final Result STKiah BRITO from Last 3 Months or Most Recently Relevant to Health Maintenance Insurance [facility] Care Teams Car Blocker Relationship Specialty Start Date End Date Provider, Generic External Data 07/11/20 Shivani Stewart MD [address] [facility] [place] [address] [place] [address] Family Medicine 02/10/21 Yvon Marx MD [address] [place] [address] [facility] 03/06/21 Shalom Harrison MD [address] [place] [address] Hematology and Oncology 03/30/22 Denae Garcia RN [address] [place] [address] Oncology Nurse Navigator 03/31/22 Ade Sparrow NP [address] [place] [address] Nurse Practitioner Family Medicine 04/19/22
--- OUTSIDE RECORDS SUMMARY | 2024-09-12 13:14 | XMS_ITS | Encounter Summary ---
Author Organization [facility] Address [address] [place], [place] [address] Care Team Providers Care Hardwood Faller Name Role Phone Theresa Main NP Primary Care Provider [phone] Provider, Generic External Data Unavailable Unavailable Shivani Stewart MD Unavailable Yvon Marx MD Unavailable [phone] Shivani Stewart MD Primary Care Provider [phone] Shalom Harrison MD Unavailable Denae Garcia RN Unavailable [phone] Ade Sparrow NP Unavailable [phone] Reason for Visit * Reason Comments Medications Refill Encounter Details Date Type Department Care Team (Late st Contact Info) Description 01/07/[address] [facility] Physicians - Primary Care, [place] [address] [place] [address] DAVID Mendez [phone] Theresa Main NP [address] [place] [id number] Medications Refill Social History Tobacco Use Types Packs/Day Years Used Date Smoking Tobacco: Every Day Cigarettes 0.5 35.6 Started: 02/22/1989 Vape Usage Smokeless Tobacco: Never Comments:vapes every day as well Alcohol Use Standard Drinks/Week Comments Yes 0 [...] Exposure Response Date Recorded In the last month, have you been in contact with someone who was confirmed or suspected to have Coronavirus / COVID-19? Unable to assess 12/19/2020 1:50 PM EDT documented as of this encounter Plan of Treatment Not on file documented as of this encounter Visit Diagnoses Not on filedocumented in this encounter Additional Health Concerns Assessment Noted Time PHQ-9 Depression Total Score: 1 01/12/20 10:57 AM EST documented as of this encounter Care Teams Hardwood Faller Relationship Specialty Start Date End Date Theresa Main NP PCP - General Nurse Practitioner 06/30/17 09/30/21 Shivani Stewart MD [address] [facility] [place] [address] PCP - General Family Medicine 10/01/21 02/08/23 Provider, Generic External Data 07/11/20 Shivani Stewart MD [address] [facility] [place] [address] Family Medicine 02/10/21 Yvon Marx MD [address] [place], [place] [address] Family Medicine 03/06/21 Shalom Harrison MD [address] [place], [place] [address] Hematology and Oncology 03/30/22 Denae Garcia RN [address] [place], [place] [address] Oncology Nurse Navigator 03/31/22 Ade Sparrow NP [address] [place] [address] Nurse Practitioner Family Medicine 04/19/22 documented as of this encounter
--- OUTSIDE RECORDS SUMMARY | 2024-09-12 13:14 | XMS_ITS | Encounter Summary ---
Author Organization [facility] Address [address] [place], [place] [address] Care Team Providers Care [employer] Sectional Center Manager Name Role Phone Provider, Generic External Data Unavailable Unavailable Shivani Stewart MD Unavailable Yvon Marx MD Unavailable [phone] Shivani Stewart MD Primary Care Provider [phone] Shalom Harrison MD Unavailable Denae Garcia RN Unavailable [phone] Ade Sparrow NP Unavailable [phone] Reason for Referral * Medication Prior Authorization - Closed Specialty Diagnoses / Procedures Referred By Contac t Referred To Contact Diagnoses Hypertension associated with type 2 diabetes mellitus ([facility]) Type 2 diabetes mellitus with other specified complication, without long-term current use of insulin Type 2 diabetes mellitus with microalbuminuria, without long-term current use of insulin ([facility]) DM type 2 with diabetic mixed hyperlipidemia ([facility]) Shivani Stewart MD [address] [place] [address] Phone: tel: fax: Referral ID Status Reason Start Date Expiration Date Visits Re quested Visits Authorized [id number] Closed 1 1 Reason for Visit * Reason Comments Medications Refill Encounter Details Date Type Department Care Team (Late st Contact Info) Description 08/19/2022 Refill [facility] Physicians - Primary Care, [place] [address] [facility] [place] [address] Shivani Stewart MD [address] [facility] [place] [address] Medications Refill Social History Tobacco Use Types [...] suspected to have Coronavirus/COVID-19? No / Unsure 08/03/2022 9:38 AM EDT documented as of this encounter Plan of Treatment Not on file documented as of this encounter Visit Diagnoses Diagnosis Hypertension associated with type 2 diabetes mellitus ([facility]) Type 2 diabetes mellitus with other specified complication, without long-term current use of insulin DM type 2 with diabetic mixed hyperlipidemia ([facility]) Type II or unspecified type diabetes mellitus with other specified manifestations, not stated as uncontrolled documented in this encounter Additional Health Concerns Assessment Noted Time PHQ-9 Depression Total Score: 1 01/12/20 20 10:57 AM EST documented as of this encounter Care Teams [employer] Manager Relationship Specialty Start Date End Date Shivani Stewart MD [address] [place] [address] PCP - General Family Medicine 10/01/21 02/08/23 Provider, Generic External Data 07/11/20 Shivani Stewart MD [address] [facility] [address] [place] [address] [facility] 02/10/21 Yvon Marx MD [address] [place], [place] [address] Family Medicine 03/06/21 Shalom Harrison MD [address] [place], [place] [address] Hematology and Oncology 03/30/22 Denae Garcia, RN [address] [place] [address] Oncology Nurse Navigator 03/31/22 Ade Sparrow NP [address] [place] [address] Nurse Practitioner Family Medicine 04/19/22 documented as of this encounter
--- OUTSIDE RECORDS SUMMARY | 2024-09-12 13:14 | XMS_ITS | Encounter Summary ---
Author Organization [facility] Address [address] [place], [place] [address] Care Team Providers Care Oil Pipeline Dispatcher Name Role Phone Theresa Main NP Primary Care Provider [phone] Provider, Generic External Data Unavailable Unavailable Shivani Stewart MD Unavailable Yvon Marx MD Unavailable [phone] Shivani Stewart MD Primary Care Provider [phone] Shalom Harrison MD Unavailable Denae Garcia RN Unavailable [phone] Ade Sparrow NP Unavailable [phone] Encounter Details Date Type Department Care Team (Late st Contact Info) Description 07/19/2020 Telephone [facility] Physicians - Primary Care, [place] [address] [place] [address] [place] [address] Theresa Main NP [address] [place] [address] Social History Tobacco Use Types Packs/Day Years [...] or suspected to have Coronavirus / COVID-19? No / Unsure 07/18/2020 1:49 PM EDT documented as of this encounter Plan of Treatment Not on file documented as of this encounter Visit Diagnoses Not on filedocumented in this encounter Additional Health Concerns Assessment Noted Time PHQ-9 Depression Total Score: 1 01/12/20 10:57 AM EST documented as of this encounter Care Teams Oil Pipeline Dispatcher Relationship Specialty Start Date End Date Theresa Main NP PCP - General Nurse Practitioner 06/30/17 09/30/21 Shivani Stewart MD [address] [facility] [address] [place] [address] PCP - General Family Medicine 10/01/21 02/08/23 Provider, Generic External Data 07/11/20 Shivani Stewart MD [address] [facility] [address] [place] [address] Family Medicine 02/10/21 Yvon Marx MD [address] [place], [place] [address] Family Medicine 03/06/21 Shalom Harrison MD [address] [place], [place] [address] Hematology and Oncology 03/30/22 Denae Garcia RN [address] [place] [address] Oncology Nurse Navigator 03/31/22 Ade Sparrow NP [address] [place] [address] Nurse Practitioner Family Medicine 04/19/22 documented as of this encounter
--- OUTSIDE RECORDS SUMMARY | 2024-09-12 13:14 | XMS_ITS | Encounter Summary ---
Author Organization [facility] Address [address] [place], [place] [address] Care Team Providers Care Automotive Mechanic Name Role Phone Provider, Generic External Data Unavailable Unavailable Shivani Stewart MD Unavailable Yvon Marx MD Unavailable [phone] Shivani Stewart MD Primary Care Provider [phone] Shalom Harrison MD Unavailable Denae Garcia RN Unavailable +[phone] Ade Sparrow NP Unavailable [phone] Reason for Visit * Reason Comments Medications Refill Encounter Details Date Type Department Care Team (Late st Contact Info) Description 12/25/2021 Refill [facility] Physicians - Primary Care, [place] [address] [facility] [place] [address] Shivani Stewart MD [address] [facility] [place] [address] Medications Refill Social History Tobacco [...] suspected to have Coronavirus/COVID-19? No / Unsure 11/25/2021 10:20 AM EDT documented as of this encounter Plan of Treatment Not on file documented as of this encounter Visit Diagnoses Diagnosis Hypertension associated with type 2 diabetes mellitus ([facility]) Type 2 diabetes mellitus with other specified complication, without long-term current use of insulin DM type 2 with diabetic mixed hyperlipidemia ([facility]) Type II or unspecified type diabetes mellitus with other specified manifestations, not stated as uncontrolled documented in this encounter Additional Health Concerns Assessment Noted Time PHQ-9 Depression Total Score: 1 01/12/20 10:57 AM EST documented as of this encounter Care Teams Automotive Mechanic Relationship Specialty Start Date End Date Shivani Stewart MD [address] [facility] [place] [address] PCP - General Family Medicine 10/01/21 02/08/23 Provider, Generic External Data 07/11/20 Shivani Stewart MD [address] [facility] [address] [facility], [place] [address] Family Medicine 02/10/21 Yvon Marx MD [address] [place], [place] [address] Family Medicine 03/06/21 Shalom Harrison MD [address] [place], [place] [address] Hematology and Oncology 03/30/22 Denae Garcia, RN [address] [place] [address] Oncology Nurse Navigator 03/31/22 Ade Sparrow NP [address] [place] [address] Nurse Practitioner Family Medicine 04/19/22 documented as of this encounter
--- OUTSIDE RECORDS SUMMARY | 2024-09-12 13:14 | XMS_ITS | Encounter Summary ---
Author Organization [facility] Address [address] [place], [place] [address] Care Team Providers Care Senior Search Marketing Analyst Name Role Phone Provider, Generic External Data Unavailable Unavailable Shivani Stewart MD Unavailable Yvon Marx MD Unavailable [phone] Shivani Stewart MD Primary Care Provider [phone] Shalom Harrison MD Unavailable Denae Garcia RN Unavailable +[phone] Ade Sparrow NP Unavailable [phone] Reason for Visit * Reason Comments Medications Refill Encounter Details Date Type Department Care Team (Late st Contact Info) Description 11/13/2021 Refill [facility] Physicians - Primary Care, [place] [address] [place] [address] Theresa Main NP [address] [place] [address] Medications Refill Social History Tobacco Use [...] Chronic midline low back pain without sciatica Cancer screening Screening for unspecified malignant neoplasm Morbidly obese ([facility]) Morbid obesity Tobacco abuse Tobacco use disorder Essential hypertension Anxiety Anxiety state, unspecified documented in this encounter Additional Health Concerns Assessment Noted Time PHQ-9 Depression Total Score: 1 01/12/20 10:57 AM EST documented as of this encounter Care Teams Senior Search Marketing Analyst Relationship Specialty Start Date End Date Shivani Stewart MD [address] [place] [address] PCP - General Family Medicine 10/01/21 02/08/23 Provider, Generic External Data 07/11/20 Shivani Stewart MD [address] [facility] [place] [address] Family Medicine 02/10/21 Yvon Marx MD [address] [place], [place] [address] Family Medicine 03/06/21 Shalom Harrison MD [address] [place], [place] [address] Hematology and Oncology 03/30/22 Denae Garcia RN [address] [place], [place] [address] Oncology Nurse Navigator 03/31/22 Ade Sparrow NP [address] [place] [address] Nurse Practitioner Family Medicine 04/19/22 documented as of this encounter
--- OUTSIDE RECORDS SUMMARY | 2024-09-12 13:14 | XMS_ITS | Encounter Summary ---
Author Organization [facility] Address [address] [place], [place] [address] Care Team Providers Care Coil Builder Name Role Phone Theresa Main NP Primary Care Provider [phone] Provider, Generic External Data Unavailable Unavailable Shivani Stewart MD Unavailable Yvon Marx MD Unavailable [phone] Shivani Stewart MD Primary Care Provider [phone] Shalom Harrison MD Unavailable Denae Garcia RN Unavailable [phone] Ade Sparrow NP Unavailable [phone] Reason for Visit * Reason Comments Medications Refill Encounter Details Date Type Department Care Team (Late st Contact Info) Description 03/09/2018 Refill [facility] Physicians - Primary Care, [place] [address] [place] [address] [place] [address] Theresa Main NP [address] [place] [address] Medications Refill Social History Tobacco Use [...] PM EST documented as of this encounter Miscellaneous Notes * Telephone Encounter - Elzbieta Donato - 03/10/2018 8:02 AM EST Called pharmacy documented in this encounter Plan of Treatment Not on file documented as of this encounter Visit Diagnoses Not on filedocumented in this encounter Additional Health Concerns Infection Onset Date Last Indicated Resolved Time Hepatitis A Comment:03/21/2018 + Hep A 03/22/2018 03/22/2018 06/16/2018 2:2 7 PM EDT Assessment Noted Time PHQ-9 Depression Total Score: 1 08/27/19 18 12:14 PM EDT documented as of this encounter Care Teams Coil Builder Relationship Specialty Start Date End Date Theresa Main NP PCP - General Nurse Practitioner 06/30/17 09/30/21 Shivani Stewart MD [address] [place] [address] PCP - General Family Medicine 10/01/21 02/08/23 Provider, Generic External Data 07/11/20 Shivani Stewart MD [address] [place] [address] Family Medicine 02/10/21 Yvon Marx MD [address] [place] [address] Family Medicine 03/06/21 Shalom Harrison MD [address] [place] [address] Hematology and Oncology 03/30/22 Denae Garcia RN [address] [place] [address] Oncology Nurse Navigator 03/31/22 Ade Sparrow NP [address] [place] [address] Nurse Practitioner Family Medicine 04/19/22 documented as of this encounter
--- OUTSIDE RECORDS SUMMARY | 2024-09-12 13:14 | XMS_ITS | Encounter Summary ---
Author Organization [facility] Address [address] [place], [place] [address] Care Team Providers Care Real Estate Associate Name Role Phone Provider, Generic External Data Unavailable Unavailable Shivani Stewart MD Unavailable Yvon Marx MD Unavailable [phone] Shivani Stewart MD Primary Care Provider [phone] Shalom Harrison MD Unavailable Denae Garcia RN Unavailable [phone] Ade Sparrow NP Unavailable [phone] Reason for Visit * Reason Comments Medications Refill Encounter Details Date Type Department Care Team (Late st Contact Info) Description 11/17/2021 Refill [facility] Physicians - Primary Care, [place] [address] [place] [address] Theresa Main NP [address] [place] [address] Medications Refill Social History Tobacco Use [...] encounter Miscellaneous Notes * Telephone Encounter - Wendi Pfeiffer MA - 11/17/2021 10:17 AM EDT Last UDS:05/06/21 Last CSA: 05/06/21 w/LW Last OV: Sprain of left ankle 08/29/21, CPE 05/06/21 Pending OV: 11/25/21 Unless otherwise stated 3 month office visit is required per [employer] documented in this encounter Plan of Treatment Not on file documented as of this encounter Visit Diagnoses Diagnosis Chronic midline low back pain without sciatica documented in this encounter Additional Health Concerns Assessment Noted Time PHQ-9 Depression Total Score: 1 01/12/20 20 10:57 AM EST documented as of this encounter Care Teams Real Estate Associate Relationship Specialty Start Date End Date Shivani Stewart MD [address] [facility] [place] [place] [address] PCP - General Family Medicine 10/01/21 02/08/23 Provider, Generic External Data 07/11/20 Shivani Stewart MD [address] [facility] [place] [place] [address] Family Medicine 02/10/21 Yvon Marx MD [address] [place], [place] [address] Family Medicine 03/06/21 Shalom Harrison MD [address] [place], [place] [address] Hematology and Oncology 03/30/22 Denae Garcia RN [address] [place] [address] Oncology Nurse Navigator 03/31/22 Ade Sparrow NP [address] [place] [address] Nurse Practitioner Family Medicine 04/19/22 documented as of this encounter
--- OUTSIDE RECORDS SUMMARY | 2024-09-12 13:14 | XMS_ITS | Encounter Summary ---
Author Organization [facility] Address [address] [place], [place] [address] Care Team Providers Care Notcher Name Role Phone Theresa Main NP Primary Care Provider [phone] Provider, Generic External Data Unavailable Unavailable Shivani Stewart MD Unavailable Yvon Marx MD Unavailable [phone] Shivani Stewart MD Primary Care Provider [phone] Shalom Harrison MD Unavailable Denae Garcia RN Unavailable [phone] Ade Sparrow NP Unavailable [phone] Reason for Visit * Reason Comments Medications Refill Encounter Details Date Type Department Care Team (Late st Contact Info) Description 06/14/2018 Refill [facility] Physicians - Primary Care, [place] [address] [place] [address] [place] [address] Theresa Main NP [address] [place] [address] Medications Refill Social History Tobacco Use Types Packs/Day Years Used Date Smoking Tobacco: Every Day Cigarettes 0.5 35.6 Started: 02/22/1989 Smokeless Tobacco: Never Alcohol Use Standard Drinks/Week Comments Yes 0 (1 standard drink = 0.6 oz pur e alcohol) socially PHQ-2 Answer Date Recorded PHQ-2 Score 0 06/01/2018 Comments No Sex and Gender Information Value [...] documented as of this encounter Care Teams Notcher Relationship Specialty Start Date End Date Theresa Main NP PCP - General Nurse Practitioner 06/30/17 09/30/21 Shivani Stewart MD [address] [place] [facility] [address] PCP - General Family Medicine 10/01/21 02/08/23 Provider, Generic External Data 07/11/20 Shivani Stewart MD [address] [place] [facility] [address] Family Medicine 02/10/21 Yvon Marx MD [address] [place], [place] [address] Family Medicine 03/06/21 Shalom Harrison MD [address] [place], [place] [address] Hematology and Oncology 03/30/22 Denae Garcia, RN [address] [place] [address] Oncology Nurse Navigator 03/31/22 Ade Sparrow NP [address] [place] [address] Nurse Practitioner Family Medicine 04/19/22 documented as of this encounter
--- OUTSIDE RECORDS SUMMARY | 2024-09-12 13:14 | XMS_ITS | Encounter Summary ---
Author Organization [facility] Address [address] [place], [place] [address] Care Team Providers Care Coverage Specialist Name Role Phone Theresa Main NP Primary Care Provider [phone] Provider, Generic External Data Unavailable Unavailable Shivani Stewart MD Unavailable Yvon Marx MD Unavailable [phone] Shivani Stewart MD Primary Care Provider [phone] Shalom Harrison MD Unavailable Denae Garcia RN Unavailable [phone] Ade Sparrow NP Unavailable [phone] Reason for Visit * Reason Comments Medications Refill Encounter Details Date Type Department Care Team (Late st Contact Info) Description 12/17/2020 Refill [facility] Physicians - Primary Care, [place] [address] [place] [address] [address] [place] [address] Theresa Main NP [address] [place] [address] Medications Refill Social History Tobacco Use [...] PM EDT documented as of this encounter Miscellaneous Notes * Telephone Encounter - Tonia Wallace - 12/19/2020 10:54 AM EDT Wcb to schedule. kmr * Telephone Encounter - Theresa Main NP - 12/17/2020 11:40 AM EDT Pt due for CPE with fasting labs please schedule documented in this encounter Plan of Treatment Not on file documented as of this encounter Visit Diagnoses Not on filedocumented in this encounter Additional Health Concerns Assessment Noted Time PHQ-9 Depression Total Score: 1 01/12/20 20 10:57 AM EST documented as of this encounter Care Teams Coverage Specialist Relationship Specialty Start Date End Date Theresa Main NP PCP - General Nurse Practitioner 06/30/17 09/30/21 Shivani Stewart MD [address] [facility] [place] [address] PCP - General Family Medicine 10/01/21 02/08/23 Provider, Generic External Data 07/11/20 Shivani Stewart MD [address] [place] [address] Family Medicine 02/10/21 Yvon Marx MD [address] [place] [address] Family Medicine 03/06/21 Shalom Harrison MD [address] [place] [address] Hematology and Oncology 03/30/22 Denae Garcia, RN [address] [place] [address] Oncology Nurse Navigator 03/31/22 Ade Sparrow NP [address] [place] [address] Nurse Practitioner Family Medicine 04/19/22 documented as of this encounter
--- OUTSIDE RECORDS SUMMARY | 2024-09-12 13:14 | XMS_ITS | Encounter Summary ---
Author Organization [facility] Address [address] [place] [address] Care Team Providers Care Rag Boiler Name Role Phone Provider, Generic External Data Unavailable Unavailable Shivani Stewart MD Unavailable Yvon Marx MD Unavailable [phone] Shivani Stewart MD Primary Care Provider [phone] Shalom Harrison MD Unavailable Denae Garcia RN Unavailable [phone] Ade Sparrow NP Unavailable [phone] Reason for Visit * Reason Comments Medications Refill Encounter Details Date Type Department Care Team (Late st Contact Info) Description 06/02/2022 Refill [facility] Physicians - Primary Care, [place] [address] [facility] [place] [address] Shivani Stewatr MD [address] [facility] [place] [address] Medications Refill Social History Tobacco [...] suspected to have Coronavirus/COVID-19? No / Unsure 06/05/2022 11:05 AM EDT documented as of this encounter Plan of Treatment Not on file documented as of this encounter Visit Diagnoses Diagnosis Chronic midline low back pain without sciatica Hypertension associated with type 2 diabetes mellitus ([facility]) Type 2 diabetes mellitus with other specified complication, without long-term current use of insulin DM type 2 with diabetic mixed hyperlipidemia ([facility]) Type II or unspecified type diabetes mellitus with other specified manifestations, not stated as uncontrolled documented in this encounter Additional Health Concerns Assessment Noted Time PHQ-9 Depression Total Score: 1 01/12/20 10:57 AM EST documented as of this encounter Care Teams Rag Boiler Relationship Specialty Start Date End Date Shivani Stewart MD [address] [facility] [place] [facility] [place] [place] [address] PCP - General Family Medicine 10/01/21 02/08/23 Provider, Generic External Data 07/11/20 Shivani Stewart MD [address] [facility] [place] [facility] [place] [address] Family Medicine 02/10/21 Yvon Marx MD [address] [place] [address] Family Medicine 03/06/21 Shalom Harrison MD [address] [place] [address] Hematology and Oncology 03/30/22 Denae Garcia RN [address] [place] [address] Oncology Nurse Navigator 03/31/22 Ade Sparrow NP [address] [place] [address] Nurse Practitioner Family Medicine 04/19/22 documented as of this encounter
--- OUTSIDE RECORDS SUMMARY | 2024-09-12 13:14 | XMS_ITS | Encounter Summary ---
Author Organization [facility] Address [address] [place], [place] [address] Care Team Providers Care Director Of Environmental Services Name Role Phone Theresa Main NP Primary Care Provider [phone] Provider, Generic External Data Unavailable Unavailable Shivani Stewart MD Unavailable Yvon Marx MD Unavailable [phone] Shivani Stewart MD Primary Care Provider [phone] Shalom Harrison MD Unavailable Denae Garcia RN Unavailable [phone] Ade Sparrow NP Unavailable [phone] Reason for Visit * Reason Comments Medications Refill Encounter Details Date Type Department Care Team (Late st Contact Info) Description 03/08/2020 Refill [facility] Physicians - Primary Care, [place] [address] [place] [address] [address] [address] Theresa Main NP [address] [place] [address] Medications Refill Social History Tobacco Use [...] as of this encounter Visit Diagnoses Diagnosis Encounter to establish care Other reasons for seeking consultation Cancer screening Screening for unspecified malignant neoplasm Morbidly obese ([facility]) Morbid obesity Tobacco abuse Tobacco use disorder Essential hypertension Anxiety Anxiety state, unspecified Chronic midline low back pain without sciatica documented in this encounter Additional Health Concerns Assessment Noted Time PHQ-9 Depression Total Score: 1 01/12/20 10:57 AM EST documented as of this encounter Care Teams Director Of Environmental Services Relationship Specialty Start Date End Date Theresa Main NP PCP - General Nurse Practitioner 06/30/17 09/30/21 Shivani Stewart MD [address] [facility] [place] [address] PCP - General Family Medicine 10/01/21 02/08/23 Provider, Generic External Data 07/11/20 Shivani Stewart MD [address] [facility] [address] [place] [address] Family Medicine 02/10/21 Yvon Marx MD [address] [place] [address] Family Medicine 03/06/21 Shalom Harrison MD [address] [place] [address] Hematology and Oncology 03/30/22 Denae Garcia RN [address] [place] [address] Oncology Nurse Navigator 03/31/22 Ade Sparrow NP [address] [place] [address] Nurse Practitioner Family Medicine 04/19/22 documented as of this encounter
--- OUTSIDE RECORDS SUMMARY | 2024-09-12 13:14 | XMS_ITS | Clinical Summary ---
Author Organization [facility] Address [address] [place] [address] Care Team Providers Care Staff Therapist Name Role Phone MainTheresa henry Omega DARNELL Primary Care Provider [phone] Anabel Felix MD Unavailable [phone] Joselo Lam MD Unavailable [phone] Source Comments This information has been disclosed to you from confidential records protectedfrom disclosure by state law. You shall make no further disclosure of thisinformation without the specific, written, and informed release of theindividual to whom it pertains, or as otherwise permitted by law. A generalauthorization for the release of medical or other information is not sufficientfor the purposes of therelease of HIV test results or diagnoses. [id number] Allergies Active Allergy Reactions Criticality Noted Date Comments Adhesive Tape-Silicones Other (See Comments) Low Skin irritation Clindamycin Hives,Nausea And Vomiting Low 03/30/2018 Morphine Hives,Swelling,Short n ess Of Breath High 05/30/2014 Sertraline Hives,Swelling Medium 07/15/2017 Medications gabapentin (NEURONTIN) 800 MG tablet Take 800 mg by mouth 3 times a day. Active citalopram (CELEXA) 40 MG tablet Take 40 mg by mouth daily. Active traZODone (DESYREL) 50 MG tablet Take 50 mg by mouth at bedtime. Active metoprolol succinate (TOPROL-XL) 25 MG 24 hr tablet Take 25 mg by mouth daily. Active omeprazole (PRILOSEC) 20 MG capsule Take 40 mg by mouth every morning before breakfast. Active topiramate (TOPAMAX) 25 MG tablet Take 25 mg by mouth 2 times a day. Active clonazePAM (KLONOPIN) 1 MG tablet Take 1 mg by mouth 3 times a day as needed for Anxiety. Active aspirin 325 MG tablet Take 325 mg by mouth daily. Active acetaminophen (TYLENOL) 325 MG tablet Take 3 tablets (975 mg total) by mouth every 8 hours. 30 tablet 2 9 Active butalbital-acetamin ophen-caffeine (FIORICET, ESGIC) 50-325-40 mg per tabletIndications:C hronic nonintractable headache, unspecified headache type Take 1 tablet by mouth every 4 hours as needed for Pain. 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 Family History Medical History Relation Comments Cancer Father Coronary artery disease Mother Anesthesia problems Neg Hx Relation Status Comments Father Mother Social History Tobacco Use Types Packs/Day Years Used Date Smoking Tobacco: Every Day Cigarettes Smokeless Tobacco: Never Alcohol Use Standard Drinks/Week Comments Yes 0 (1 standard drink = 0.6 oz pur e alcohol) occasional Comments No Sex and Gender Information Value Date Recorded Sex Assigned at Not on file Legal Sex Female 11:39 AM EDT Gender Identity Not on file Sexual Orientation Not on file Last Filed Vital Signs Vital Sign Reading Time Taken Comments Blood Pressure 132/79 04/13/2019 8:30 AM EST Pulse 66 04/13/2019 8:30 AM EST Temperature 36.4 C (97.5 F) 03/12/2019 2:18 PM EST Respiratory Rate 17 03/12/2019 6:18 PM EST Oxygen Saturation 94% 04/13/2019 8:30 AM EST Inhaled Oxygen Concentration 94% 04/13/2019 8 :30 AM EST Weight 142.9 kg (315 lb) 05/08/2021 4:21 PM EDT Height 167.6 cm (5' 6 ) 05/08/2021 4:21 PM EDT Body Mass Index 50.84 05/08/2021 4:21 PM EDT Plan of Treatment Health Maintenance Due Date Last Done Comments Depression Monitoring (PHQ-9) 1980 Hepatitis C Screening (MyChart) 1980 Immunization: Haemophilus In fluenzae Type B / Hib (1 of 1 - Risk 1-dose series) 03/16/1982 Immunization: Meningococcal ACWY (1 - Risk 2-dose series) 1982 Immunization: Meningococcal B (1 of 4 - Increased Risk) 1990 Alcohol Misuse Screening 1998 HIV Screening 1998 Immunization: Hepatitis B (1 of 3 - 19+ 3-dose series) 12/15/1999 Immunization: Pneumococcal (1 of 2 - PCV) 12/15/1999 Cervical Cancer Screening/Pap Smear ([facility]) 12/15/19 11 Mammogram ([facility]) 2020 Immunization: COVID-19 () 10/24/2023 Immunization: Influenza ([facility]) (#1) 2024 Immunization: DTaP/Tdap/Td (2 - Td or Tdap) 03/03/2027 03/03/2017 Medical Devices Implanted Type Area Supervisor/Port Director Device Identifier Shelf Expiration Date Model / Serial / Lot Graft Soft Tissue Duraform Collagen L2 In X W2 In Dural Texture Top Surface Smooth Bottom - [id number] Implanted:Qty: 1 on 12/16/2018 by Joselo Lam MD at [facility] Main Graft [employer] 10/23/2019 [id number] / / [id number] Plate Bone [place] [employer] Iii Titanium Dog L12 Mm X H.6 Mm Craniomaxillofacial 2 Hole Low Profile Rigid Nonsterile 1.5 Mm Screw Retrosigmoid - [id number] Implanted:Qty: 3 on 12/16/2018 by Joselo Lam MD at [facility] Main Plate Left: Cranial VIJAYA LEIBINGER [id number] / / Screw Bone [place] [employer] 3 L4 Mm Od1.5 Mm Self Drill Axial Stability Nonsterile Latex Free - [id number] Implanted:Qty: 6 on 12/16/2018 by Joselo Lam MD at [facility] Main Screw Left: Cranial VIJAYA LEIBINGER [id number] / / Insurance [facility] Advance Directives For more information, please contact: [phone] * Full Code (Latest Code Status on File) Date Activated Date Inactivated Comments 12/16/2018 7:06 PM 12/17/2018 8:31 PM Care Teams Staff Therapist Relationship Specialty Start Date End Date Theresa Main NP PCP - General Nurse Practitioner 09/28/18 Anabel Felix MD Neurology 11/11/18 Joselo Lam MD Surgeon [facility] Neurosurgery 11/11/18
--- OUTSIDE RECORDS SUMMARY | 2024-09-12 13:14 | XMS_ITS | Encounter Summary ---
Author Organization [facility] Address [address] [place], [place] [address] Care Team Providers Care Deputy Sheriff Generalist/Bailiff Name Role Phone Theresa Main NP Primary Care Provider [phone] Provider, Generic External Data Unavailable Unavailable Shivani Stewart MD Unavailable Yvon Marx MD Unavailable [phone] Shivani Stewart MD Primary Care Provider [phone] Shalom Harrison MD Unavailable Denae Garcia RN Unavailable [phone] Ade Sparrow NP Unavailable [phone] Reason for Visit * Reason Comments Medications Refill Encounter Details Date Type Department Care Team (Late st Contact Info) Description 05/26/2021 Refill [facility] Physicians - Primary Care, [place] [address] [place] [address] DAVID Mendez [address] Theresa Main NP [address] [place] [address] Medications Refill Social History Tobacco Use [...] suspected to have Coronavirus/COVID-19? No / Unsure 05/23/2021 4:02 PM EDT documented as of this encounter Plan of Treatment Not on file documented as of this encounter Visit Diagnoses Not on filedocumented in this encounter Additional Health Concerns Assessment Noted Time PHQ-9 Depression Total Score: 1 01/12/20 10:57 AM EST documented as of this encounter Care Teams Deputy Sheriff Generalist/Bailiff Relationship Specialty Start Date End Date Theresa Main NP PCP - General Nurse Practitioner 06/30/17 09/30/21 Shivani Stewart MD [address] [facility] [place] [address] [place] [address] PCP - General Family Medicine 10/01/21 02/08/23 Provider, Generic External Data 07/11/20 Shivani Stewart MD [address] [facility] [address] [facility] [address] Family Medicine 02/10/21 Yvon Marx MD [address] [place] [address] Family Medicine 03/06/21 Shalom Harrison MD [address] [place] [address] Hematology and Oncology 03/30/22 Denae Garcia RN [address] [place] [address] Oncology Nurse Navigator 03/31/22 Ade Sparrow NP [address] [place] [address] Nurse Practitioner Family Medicine 04/19/22 documented as of this encounter
--- OUTSIDE RECORDS SUMMARY | 2024-09-12 13:14 | XMS_ITS | Encounter Summary ---
Author Organization [facility] Address [address] [place], [place] [address] Care Team Providers Care Pressurization Mechanic Name Role Phone Theresa Main NP Primary Care Provider [phone] Provider, Generic External Data Unavailable Unavailable Shivani Stewart MD Unavailable Yvon Marx MD Unavailable [phone] Shivani Stewart MD Primary Care Provider [phone] Shalom Harrison MD Unavailable Denae Garcia RN Unavailable [phone] Ade Sparrow NP Unavailable [phone] Reason for Visit * Reason Comments Medications Refill Encounter Details Date Type Department Care Team (Late st Contact Info) Description 02/27/2019 Refill [facility] Physicians - Primary Care, [place] [address] [place] [address] [place] [address] Theresa Main NP [address] [place] [address] Medications Refill Social History Tobacco Use Types Packs/Day Years Used Date Smoking Tobacco: Every Day Cigarettes 0.5 35.6 Started: 02/22/1989 Vape Usage Smokeless Tobacco: Never Comments:vapes every day as well Alcohol Use Standard Drinks/Week Comments Yes 0 (1 standard drink = 0.6 oz pur e alcohol) socially PHQ-2 Answer Date Recorded PHQ-2 Score 0 10/20/2018 Comments No Sex and Gender Information Value Date Recorded Sex Assigned at Female 04/03/2022 12:44 PM EST Legal Sex Female 1:57 PM EDT Gender Identity Female 04/03/2022 12:44 PM EST Sexual Orientation Straight 04/03/2022 12 :44 PM EST documented as of this encounter Miscellaneous Notes * Telephone Encounter - Jaqueline Salas MA - 02/27/2019 1:24 PM EST [email or web address] On your desk * Telephone Encounter - Theresa Main NP - 02/27/2019 12:58 PM EST haseeb documented in this encounter Plan of Treatment Not on file documented as of this encounter Visit Diagnoses Not on filedocumented in this encounter Additional Health Concerns Assessment Noted Time PHQ-9 Depression Total Score: 1 10/21/19 19 3:12 PM EDT documented as of this encounter Care Teams Pressurization Mechanic Relationship Specialty Start Date End Date Theresa Main NP PCP - General Nurse Practitioner 06/30/17 09/30/21 Shivani Setwart MD [address] [place], [place] [id number] PCP - General Family Medicine 10/01/21 02/08/23 Provider, Generic External Data 07/11/20 Shivani Stewart MD [address] [place], [place] [id number] Family Medicine 02/10/21 Yvon Marx MD [address] [place] [address] Family Medicine 03/06/21 Shalom Harrison MD [address] [place] [address] Hematology and Oncology 03/30/22 Denae Garcia, RN [address] [place] [address] Oncology Nurse Navigator 03/31/22 Ade Sparrow NP [address] [place] [address] Nurse Practitioner Family Medicine 04/19/22 documented as of this encounter
--- OUTSIDE RECORDS SUMMARY | 2024-09-12 13:14 | XMS_ITS | Encounter Summary ---
Author Organization [facility] Address [address] [place], [place] [address] Care Team Providers Care Metal Model Builder Name Role Phone Provider, Generic External Data Unavailable Unavailable Shivani Stewart MD Unavailable Yvon Marx MD Unavailable [phone] Shivani Stewart MD Primary Care Provider [phone] Shalom Harrison MD Unavailable Denae Garcia RN Unavailable [phone] Ade Sparrow NP Unavailable [phone] Reason for Visit * Reason Comments Medications Refill Encounter Details Date Type Department Care Team (Late st Contact Info) Description 03/24/2022 Refill [facility] Physicians - Primary Care, [place] [address] [facility] [place] [address] Shivani Stewart MD [address] [facility] [place] [address] Medications Refill Social History Tobacco [...] Telephone Encounter - Lucero Odell MA - 03/24/2022 10:28 AM EST Last UDS:05/06/2021 Last CSA:11/25/2021 Last OV: 11/25/2021 Pending OV:NONE Unless otherwise stated 3 month office visit is required per [place] documented in this encounter Plan of Treatment Not on file documented as of this encounter Visit Diagnoses Diagnosis Hypertension associated with type 2 diabetes mellitus ([facility]) Type 2 diabetes mellitus with other specified complication, without long-term current use of insulin DM type 2 with diabetic mixed hyperlipidemia ([facility]) Type II or unspecified type diabetes mellitus with other specified manifestations, not stated as uncontrolled Chronic midline low back pain without sciatica Controlled substance agreement signed Encounter for long-term (current) use of other medications GARTH (generalized anxiety disorder) Generalized anxiety disorder Moderate episode of recurrent major depressive disorder ([facility]) documented in this encounter Additional Health Concerns Assessment Noted Time PHQ-9 Depression Total Score: 1 01/12/20 10:57 AM EST documented as of this encounter Care Teams Metal Model Builder Relationship Specialty Start Date End Date Shivani Stewart MD [address] [place], [place] [id number] PCP - General Family Medicine 10/01/21 02/08/23 Provider, Generic External Data 07/11/20 Shivani Stewart MD [address] [place], [place] [id number] Family Medicine 02/10/21 Yvon Marx MD [address] [place] [address] Family Medicine 03/06/21 Shalom Harrison MD [address] [place] [address] Hematology and Oncology 03/30/22 Denae Garcia, RN [address] [place] [address] Oncology Nurse Navigator 03/31/22 Ade Sparrow NP [address] [place] [address] Nurse Practitioner Family Medicine 04/19/22 documented as of this encounter
--- OUTSIDE RECORDS SUMMARY | 2024-09-12 13:14 | XMS_ITS | Encounter Summary ---
Author Organization [facility] Address [address] [place], [place] [address] Care Team Providers Care Forklift Mechanic Name Role Phone Theresa Main NP Primary Care Provider [phone] Provider, Generic External Data Unavailable Unavailable Shivani Stewart MD Unavailable Yvon Marx MD Unavailable [phone] Shivani Stewart MD Primary Care Provider [phone] Shalom Harrison MD Unavailable Denae Garcia RN Unavailable [phone] Ade Sparrow NP Unavailable [phone] Reason for Visit * Reason Comments Medications Refill Encounter Details Date Type Department Care Team (Late st Contact Info) Description 03/08/2018 Refill [facility] Physicians - Primary Care, [place] [address] [place] [address] [place] [address] Theresa Main NP [address] [place] [address] Medications Refill Social History Tobacco Use [...] Screening for unspecified malignant neoplasm Morbidly obese ([facility]) Morbid obesity Tobacco abuse Tobacco [...] documented as of this encounter Care Teams Forklift Mechanic Relationship Specialty Start Date End Date Theresa Main NP PCP - General Nurse Practitioner 06/30/17 09/30/21 Shivani Stewart MD [address] [facility] [place] [address] PCP - General Family Medicine 10/01/21 02/08/23 Provider, Generic External Data 07/11/20 Shivani Stewart MD [address] [facility] [place] [address] Family Medicine 02/10/21 Yvon Marx MD [address] [place] [address] Family Medicine 03/06/21 Shalom Harrison MD [address] [place] [address] Hematology and Oncology 03/30/22 Denae Garcia, RN [address] [place] [address] Oncology Nurse Navigator 03/31/22 Ade Sparrow NP [address] [place] [address] Nurse Practitioner Family Medicine 04/19/22 documented as of this encounter
--- NOTE | 2024-09-12 14:00 | MM_ITS ---
PROCEDURE INFORMATION: Exam: MG Bilateral Screening 3D Mammography Exam date and time: 09/12/2024 1:12 PM Age: 43 years old Clinical indication: Screening exam TECHNIQUE: Imaging protocol: Bilateral Screening tomosynthesis and 2D mammography including computer-aided detection (CAD) when performed. COMPARISON: No relevant prior studies available. FINDINGS: MAMMOGRAPHY: Breast composition: There are scattered areas of fibroglandular density. Mass: No suspicious masses. Architectural distortion: None. Calcifications: No suspicious calcifications. Asymmetric density: None. Skin thickening: None. Axillary adenopathy: None. IMPRESSION: No mammographic evidence of malignancy. Annual screening is recommended unless otherwise clinically indicated. ASSESSMENT: BI-RADS Category 1: Negative.
== END 2024-09-12 23:59 | disposition home or self-care (01) ==
LOC: RAD 13:12
PROVIDERS: PCP Family Medicine; Visit Provider Family Medicine
DX: Z12.31 Encounter for screening mammogram for malignant neoplasm of breast (principal); R92.323 Mammographic fibroglandular density, bilateral breasts
CPT/HCPCS: 77063; 77067

== ENCOUNTER 2025-01-31 11:39 | Outpatient (CLI) | payer MEDICAID, SELFPAY ==
[2025-01-31 18:43] LABS: Hematocrit 45.7 % (37.0-47.0); Hemoglobin 14.2 g/dL (12.2-16.2); Immature Granulocytes % 0.2 %; Mean Corpuscular HGB Conc 31.1 g/dL (31.8-35.4); Mean Corpuscular Hemoglobin 28.1 pg (27.0-31.2); Mean Corpuscular Volume 90.5 fl (81-99); Nucleated Red Blood Cells % 0 %; Platelet Count 505 K/mm3 (142-424); Red Blood Count 5.05 M/mm3 (4.20-5.40); Red Cell Distribution Width-SD 58.0 fL; White Blood Count 9.3 K/mm3 (4.8-10.8)
[2025-01-31 19:04] LABS: Alanine Aminotransferase 17 U/L (12-78); Albumin Level 4.3 g/dl (3.5-5.0); Albumin/Globulin Ratio 1.3 (1.1-1.8); Alkaline Phosphatase 102 U/L (38-126); Anion Gap 14.1 mEq/L (5-15); Aspartate Amino Transferase 21 U/L (14-36); Bilirubin,Total 0.4 mg/dl (0.2-1.3); Blood Urea Nitrogen 7 mg/dl (7-17); Calcium 9.5 mg/dl (8.4-10.2); Carbon Dioxide 27 mmol/L (22.0-30.0); Chloride 102 mmol/L (98-107); Cholesterol 200 mg/dl (140-200); Creatinine,Serum 0.50 mg/dl (0.52-1.04); Estimated Glomerular Filt Rate 134 ml/min (>60); GFR (African American) 162 ML/MIN (>60); Globulin 3.4 g/dL (1.3-3.2); Glucose 111 mg/dl (74-100); HDL Cholesterol 44 mg/dl (40-60); Potassium 5.1 mmoL/L (3.5-5.1); Sodium 138 mmol/L (136-145); Total Protein,Serum 7.7 g/dl (6.3-8.2); Triglycerides 119 mg/dl (30-150)
[2025-01-31 19:47] LABS: Hepatitis C Ab Qual. W/ RFX NEGATIVE (Negative)
[2025-02-02 09:44] LABS: Hepatitis B Surface Antigen Negative (Negative)
== END 2025-01-31 23:59 ==
LOC: LAB.DROPOF 02-02 11:37
PROVIDERS: PCP Family Medicine; Visit Provider Family Medicine
DX: G25.81 Restless legs syndrome (principal); E11.9 Type 2 diabetes mellitus without complications; G62.9 Polyneuropathy, unspecified; Z11.59 Encounter for screening for other viral diseases
CPT/HCPCS: 80053; 80061; 85025; 86803; 87340; 87389